=== PATIENT | female | born 1975 | race Caucasian/White ===

== ENCOUNTER 2022-01-06 14:12 | Outpatient (REF) | payer OTHER, SELFPAY ==
[2022-01-06 16:23] LABS: MANUAL DIFF FLAG NO
[2022-01-06 16:25] LABS: Basophils Percent Auto 0.3 % (0-2); Eosinophils Absolute Auto 0.2 X10*3/uL (0.0-0.4); Eosinophils Percent Auto 2.2 % (0-4); Hematocrit 42.2 % (37.0-47.0); Imm Gran Abs Auto 0.03 X10*3/uL (0.00-0.03); Imm Gran Pct Auto 0.3 % (0.0-0.4); Lymphocytes Absolute Auto 2.5 X10*3/uL (1.2-4.9); Lymphocytes Percent Auto 24.3 % (20-40); Mean Corpuscular HGB Conc 33.2 g/dl (31.0-35.0); Mean Corpuscular Hemoglobin 28.4 pg (27.0-33.0); Mean Corpuscular Volume 85.6 fL (80.0-98.0); Mean Platelet Volume 10.9 fL (9.4-12.3); Monocytes Absolute Auto 0.7 X10*3/uL (0.1-1.2); Monocytes Percent Auto 6.8 % (2-11); Neutrophils Absolute Auto 6.8 x10*3/uL (2.0-8.3); Neutrophils Percent Auto 66.1 % (45-73); Platelet Count 257 X10*3/uL (160-400); Red Blood Count 4.93 X10*6/uL (4.20-5.50); Red Cell Distribution Width 12.6 % (11.0-16.0); White Blood Count 10.3 X10*3/uL (4.8-10.8)
== END 2022-01-06 14:13 | disposition home or self-care (01) ==
LOC: HO.HMGCLDS 14:12
PROVIDERS: Visit Provider Physician Assistant Medical
DX: L03.90 Cellulitis, unspecified (principal)
CPT/HCPCS: 36415; 85025

== ENCOUNTER 2023-08-16 14:48 | Outpatient (AMB) | payer OTHER, SELFPAY ==
[2023-08-16 15:08] VITALS: PULSE 78; O2SAT 96; BMI 44.1
--- NOTE | 2023-08-16 15:08 | A.OFFVIS_ITS ---
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 The patient is a 48 year woman who apparently started developing respiratory issues the last for 5 years. She is having issues with hoarseness laryngitis. 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 She has had episodes of asthma that had been frequent. Requiring multiple courses of prednisone antibiotics. She will usually go to an urgent care. The last time she did go to the [facility] ED. That was back in May. I did look at her imaging studies. The patient had a chest x-ray without any acute disease. The patient has never had allergy testing. She does have a cat a dog and a bird. On examination she does have significant wheezing. She had been taking Advair HFA for many years. Although with her vocal cord dysfunction not sure if the inhalers are actually helping her to the fullest degree. She has been also using allergy medication. Will go ahead and request allergy testing at this time. Will start her on budesonide via nebulizer to try to improve her significant wheezing and avoid prednisone. The patient also may have a component of microaspiration specially with a vocal cord paralysis. She does have a hiatal hernia. She did have a barium swallow without any significant reflux although explained to her that she likely does because of her hiatal hernia. We did talk about the importance of sleeping elevated in the reflux di et. She will make some lifestyle changes this time. In addition to that will start her on a promotility agent azithromycin for least a month and see this provides some relief as well. The patient returns 6-8 weeks after her allergy testing. Will hold off on spirometry specially with a vocal cord paralysis. The patient will be following up with ENT soon and she is going to have a Botox injection. [facility] Medical History (Updated 08/18/23 @ 23:16 by Josh Infante MD) Hiatal hernia Paralysis of right vocal cord Asthma Allergy Social History (Updated 08/16/23 @ 15:13 by Chrissie Joshi, RMA) Patient Tobacco Use Status: Former Tobacco user Tobacco use type: Cigarette Years Smoked: 25 Years Review of Systems Const Denies fever(s) Eyes Reports no additional complaints ENT Reports nasal congestion Card Denies chest pain and Reports dyspnea on exertion Resp Reports cough, Reports dyspnea on exertion and Reports wheezing GI Reports heartburn Musc Reports no additional complaints Skin/Breast Denies rash [place]/Lymph Denies lymphadenopathy Aller/Immun Reports wheezing Physical Exam Vital Signs: Last Vital Signs Pulse 78 08/16/23 15:08 Pulse Ox 96 08/16/23 15:08 Oxygen Delivery Method Room Air 08/16/23 15:08 BMI result Body Mass Index 44.1 Const General: comfortable HEENT Head: Yes normocephalic Chest Chest palpation & inspection: normal inspection of the chest Resp Effort & Inspection: normal respiratory effort Auscultation: wheezes Cardio Heart sounds: S1 normal heart sound present and S2 normal heart sound present GI Palpation (GI): Soft to palpation Skin General skin exam: no rashes or lesions noted Extrem General: Yes no clubbing, cyanosis or edema Assessment & Plan Assessment & Plan (1) Asthma: Code(s): J45.909 - Unspecified asthma, uncomplicated Category: Medical Qualifiers: Asthma severity: moderate Asthma persistence: persistent Asthma complication type: uncomplicated Qualified Code(s): J45.40 - Moderate persistent asthma, uncomplicated (2) Allergy: Code(s): T78.40XA - Allergy, unspecified, initial encounter Category: Medical Qualifiers: Encounter type: initial encounter Qualified Code(s): T78.40XA - Allergy, unspecified, initial encounter (3) Paralysis of right vocal cord: Code(s): J38.01 - Paralysis of vocal cords and larynx, unilateral Category: Medical (4) Hiatal hernia: Code(s): K44.9 - Diaphragmatic hernia without obstruction or gangrene Category: Medical Plan continue Advair Add budesondie via neb ELVA as needed Bloodwork/allergy testing nebulizer provided start Azithromycin MWF x 1 month Prednisone if no better May benefit from Biologic therapy Orders: Orders Complete Blood Count Auto Diff 08/16/23 J45.909 - Unspecified asthma, uncomplicated, T78.40XA - Allergy, unspecified, initial encounter Basic Metabolic Panel 08/16/23 J45.909 - Unspecified asthma, uncomplicated, T78.40XA - Allergy, unspecified, initial encounter Hypersensitive Pneumonitis Prf 08/16/23 J45.909 - Unspecified asthma, uncomplicated, R91.8 - Other nonspecific abnormal finding of lung field, T78.40XA - Allergy, unspecified, initial encounter Erythrocyte Sedimentation Rate 08/16/23 J45.909 - Unspecified asthma, uncompl icated, T78.40XA - Allergy, unspecified, initial encounter Sjogren's Antibodies 08/16/23 J45.909 - Unspecified asthma, uncomplicated, T78.40XA - Allergy, unspecified, initial encounter Immunoglobulin E 08/16/23 J45.909 - Unspecified asthma, uncomplicated, T78.40XA - Allergy, unspecified, initial encounter DIANE Reflex Titer and Pattern 08/16/23 J45.909 - Unspecified asthma, uncomplicated, T78.40XA - Allergy, unspecified, initial encounter Resp Allergy Profile Region I 08/16/23 J45.909 - Unspecified asthma, uncomplicated, R91.1 - Solitary pulmonary nodule, T78.40XA - Allergy, unspecified, initial encounter Medications: New budesonide 0.5 mg (2 mL) inhalation QAM 60 mL 11RF 30 days J44.9 - Chronic obstructive pulmonary disease, unspecified azithromycin Take 1 tablet on Saturday/Saturday/Saturday 250 mg PO 3XW 12 tabs 0RF 28 days K21.9 - Gastro-esophageal reflux disease without esophagitis Coding Level of Care Code New Pt Level 4 (24278) Diagnoses Moderate persistent asthma without complication J45.40 Asthma severity: moderate Asthma persistence: persistent Asthma complication type: uncomplicated Allergy, initial encounter T78.40XA Encounter type: initial encounter Paralysis of right vocal cord J38.01 Hiatal hernia K44.9 Time Spent (min) 40
== END 2023-08-16 15:40 | disposition home or self-care (01) ==
PROVIDERS: PCP Internal Medicine; Visit Provider Hospitalist
DX: J45.40 Moderate persistent asthma, uncomplicated (principal); T78.40XA Allergy, unspecified, initial encounter; J38.01 Paralysis of vocal cords and larynx, unilateral; K44.9 Diaphragmatic hernia without obstruction or gangrene
CPT/HCPCS: 99204

== ENCOUNTER 2023-08-16 14:48 | Outpatient (REF) | payer OTHER, SELFPAY ==
[2023-08-16 15:53] LABS: MANUAL DIFF FLAG NO
[2023-08-16 17:55] LABS: Basophils Absolute Auto 0.1 X10*3/uL (0.0-0.2); Basophils Percent Auto 0.4 % (0-2); Eosinophils Absolute Auto 0.5 X10*3/uL (0.0-0.4); Eosinophils Percent Auto 4.7 % (0-4); Hematocrit 41.8 % (37.0-47.0); Hemoglobin 13.4 g/dl (12.0-16.0); Imm Gran Abs Auto 0.04 X10*3/uL (0.00-0.03); Imm Gran Pct Auto 0.3 % (0.0-0.4); Lymphocytes Absolute Auto 3.7 X10*3/uL (1.2-4.9); Lymphocytes Percent Auto 32.6 % (20-40); Mean Corpuscular HGB Conc 32.1 g/dl (31.0-35.0); Mean Corpuscular Hemoglobin 25.9 pg (27.0-33.0); Mean Corpuscular Volume 80.7 fL (80.0-98.0); Monocytes Absolute Auto 0.7 X10*3/uL (0.1-1.2); Neutrophils Absolute Auto 6.4 x10*3/uL (2.0-8.3); Platelet Count 265 X10*3/uL (160-400); Red Blood Count 5.18 X10*6/uL (4.20-5.50); Red Cell Distribution Width 13.4 % (11.0-16.0); White Blood Count 11.5 X10*3/uL (4.8-10.8)
[2023-08-16 18:56] LABS: Erythrocyte Sedimentation Rate 12 MM/HR (0-20)
[2023-08-16 18:57] LABS: Anion Gap 13 (12-20); Blood Urea Nitrogen 17 mg/dL (9-16); Calcium 9.4 mg/dL (8.4-10.2); Carbon Dioxide 27 mmol/L (22-29); Chloride 106 mmol/L (96-108); Estimated Glomerular Filt Rate > 60; Glucose Random 74 mg/dL (60-115); Potassium 3.8 mmol/L (3.3-5.1); Sodium 142 mmol/L (135-145)
[2023-08-20 22:04] LABS: Antibody to SS-A Antigen <1.0 NEG AI (<1.0 NEG); Antibody to SS-B Antigen <1.0 NEG AI (<1.0 NEG)
[2023-08-21 14:34] LABS: Immunoglobulin E 38 kU/L (<OR=114)
[2023-08-24 14:13] LABS: Asperg fumigatus Precip Abs NEGATIVE (NEGATIVE); Micropoly faeni Abs NEGATIVE (NEGATIVE); Pigeon serum Abs NEGATIVE (NEGATIVE); Saccharo pora viridis Abs NEGATIVE (NEGATIVE); Thermo candidus Abs NEGATIVE (NEGATIVE); Thermoa vulgaris #1 NEGATIVE (NEGATIVE)
[2023-08-24 21:14] LABS: Anti Nuclear Antibody Pattern Nuclear, Homogeneous; Anti Nuclear Antibody Screen POSITIVE (NEGATIVE)
== END 2023-08-16 14:49 | disposition home or self-care (01) ==
LOC: HO.LAB 14:48
PROVIDERS: Visit Provider Hospitalist
DX: J45.40 Moderate persistent asthma, uncomplicated (principal); T78.40XA Allergy, unspecified, initial encounter; R91.8 Other nonspecific abnormal finding of lung field; K44.9 Diaphragmatic hernia without obstruction or gangrene; J38.01 Paralysis of vocal cords and larynx, unilateral
CPT/HCPCS: 36415; 80048; 82785; 85025; 85652; 86038; 86039; 86235; 86331; 86606; 86609

== ENCOUNTER 2023-09-26 10:54 | Outpatient (AMB) | payer OTHER, SELFPAY ==
[2023-09-26 10:58] VITALS: PULSE 73; O2SAT 94; BMI 46.1
--- NOTE | 2023-09-26 10:58 | A.OFFVIS_ITS ---
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 She is having issues with hoarseness laryngitis. 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 She has had episodes of asthma that had been frequent. Requiring multiple courses of prednisone antibiotics. She will usually go to an urgent care. The last time she did go to the [facility] ED. That was back in May. I did look at her imaging studies. The patient had a chest x-ray without any acute disease. The patient has never had allergy testing. She does have a cat a dog and a bird. On examination she does have significant wheezing. She had been taking Advair HFA for many years. Although with her vocal cord dysfunction not sure if the inhalers are actually helping her to the fullest degree. She has been also using allergy medication. Will go ahead and request allergy testing at this time. Will start her on budesonide via nebulizer to try to improve her significant wheezing and avoid prednisone. The patient also may have a component of microaspiration specially with a vocal cord paralysis. She does have a hiatal hernia. She did have a barium swallow without any significant reflux although explained to her that she likely does because of her hiatal hernia. We did talk about the importance of sleeping elevated in the reflux diet. She will make some lifestyle changes this time. In addition to that will start her on a promotility agent azithromycin for least a month and see this provides some relief as well. The patient returns 6-8 weeks after her allergy testing. Will hold off on spirometry specially with a vocal cord paralysis. The patient will be following up with ENT soon and she is going to have a Botox injection. 09/26/2023 the patient is here for a pulmonary follow-up visit. The patient is doing a little better. She did start budesonide has continued the Advair. Still having wheezing on a regular basis still requiring her rescue inhaler regularly. She also completed the antibiotics. She is monitoring closely for any reflux disease and following reflux diet. Overall she is doing a little better. We did look at her blood work demonstrating significant eosinophilia. 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 Based on the fact that she is maximized on respiratory therapy and requiring frequent prednisone and still having wheezing requiring her rescue inhaler on a daily basis consistent with severe persistent asthma the patient be a great candidate for interleukin 5 inhibitors. I believe Fasenra be a very good option for her. Will be requested from her insurance. This will minimize her steroid use and therefore decrease her risk of future adverse effects from the steroids and improve her overall health and quality of life. So will go ahead and maximize her respiratory therapy and request biologics at this time. She does have some lower extremity edema as well. The patient does not taking additional salt. She is very careful with that. She does have an elevated blood pressure. She does have snoring and does have an elevated Nageezi score of 10/24. We did discuss considering sleep study. Will discuss it further once her respiratory symptoms are improved. [facility] Medical History (Updated 09/26/23 @ 23:26 by Josh Infante MD) Hiatal hernia Paralysis of right vocal cord Asthma Allergy Social History (Updated 08/16/23 @ 15:13 by BHAKTI Dee) Patient Tobacco Use Status: Former Tobacco user Tobacco use type: Cigarette Years Smoked: 25 Years Review of Systems Const Denies fever(s) Eyes Reports no additional complaints ENT Reports nasal congestion Card Denies chest pain and Reports dyspnea on exertion Resp Reports cough, Reports dyspnea on exertion and Reports wheezing GI Reports heartburn Musc Reports no additional complaints Skin/Breast Denies rash [place]/Lymph Denies lymphadenopathy Aller/Immun Reports wheezing Physical Exam Vital Signs: Last Vital Signs Pulse 73 09/26/23 10:58 Pulse Ox 94 09/26/23 10:58 Oxygen Delivery Method Room Air 09/26/23 10:58 BMI result Body Mass Index 46.1 Const General: comfortable HEENT Head: Yes normocephalic Chest Chest palpation & inspection: normal inspection of the chest Resp Effort & Inspection: normal respiratory effort and prolonged expiratory phase Auscultation: wheezes Cardio Heart sounds: S1 normal heart sound present and S2 normal heart sound present GI Palpation (GI): Soft to palpation Skin General skin exam: no rashes or lesions noted Extrem General: Yes no clubbing, cyanosis or edema Assessment & Plan Assessment & Plan (1) Asthma: Code(s): J45.909 - Unspecified asthma, uncomplicated Category: Medical Qualifiers: Asthma complication type: uncomplicated Asthma persistence: persistent Asthma severity: severe Qualified Code(s): J45.50 - Severe persistent asthma, uncomplicated (2) Allergy: Code(s): T78.40XA - Allergy, unspecified, initial encounter Category: Medical Qualifiers: Encounter type: initial encounter Qualified Code(s): T78.40XA - Allergy, unspecified, initial encounter (3) Paralysis of right vocal cord: Code(s): J38.01 - Paralysis of vocal cords and larynx, unilateral Category: Medical (4) Hiatal hernia: Code(s): K44.9 - Diaphragmatic hernia without obstruction or gangrene Category: Medical Plan stop Advair start Trelegy 200 continue budesonide via neb ELVA as needed Requesting Fasenra biologic therapy to treat her severe eosinophilic asthma nebulizer F/U 4 months Medications: New yjktofrzxmk-bsdtprutm-ranzbffv 200-62.5-25 mcg (Trelegy Ellipta) 1 inh inhalation DAILY 60 ea 12RF 30 days Coding Level of Care Code Est Pt Level 4 (81068) Diagnoses Severe persistent asthma without complication J45.50 Asthma complication type: uncomplicated Asthma persistence: persistent Asthma severity: severe Allergy, initial encounter T78.40XA Encounter type: initial encounter Paralysis of right vocal cord J38.01 Hiatal hernia K44.9 Time Spent (min) 17
== END 2023-09-26 11:18 | disposition home or self-care (01) ==
PROVIDERS: PCP Internal Medicine; Visit Provider Hospitalist
DX: J45.50 Severe persistent asthma, uncomplicated (principal); T78.40XA Allergy, unspecified, initial encounter; J38.01 Paralysis of vocal cords and larynx, unilateral; K44.9 Diaphragmatic hernia without obstruction or gangrene
CPT/HCPCS: 99214

== ENCOUNTER → 2023-09-26 10:54 | Outpatient (BNVA) | payer OTHER, SELFPAY | PROVIDERS: PCP Internal Medicine; Visit Provider Hospitalist | DX: J44.9 Chronic obstructive pulmonary disease, unspecified (principal); T78.40XA Allergy, unspecified, initial encounter; J45.909 Unspecified asthma, uncomplicated; K21.9 Gastro-esophageal reflux disease without esophagitis ==

== ENCOUNTER 2023-12-13 13:58 | Outpatient (AMB) | payer OTHER, SELFPAY ==
[2023-12-13 14:08] VITALS: BP 150/98; PULSE 85; O2SAT 93; BMI 44.3
--- NOTE | 2023-12-13 14:08 | A.OFFVIS_ITS ---
Vital Signs 12/13/23 14:08 Height 5 ft 3 in Weight 250 lb 2 oz BMI 44.3 BP 150/98 H Blood Pressure Location Rt brachial Position Sitting Pulse 85 Pulse Source Pulse Oximeter Pulse Oximetry (%) 93 Oxygen Delivery Method Room Air Intake Visit Reasons: Increase shortness of breath Allergies No Known Allergies Allergy (Verified 12/13/23 14:16) HPI HPI Increase shortness of breath: Details: Diana is pleasant 48 year old female, former minimal smoker with less than 10 pack year history, with underlying asthma, environmental allergies, and vocal cord dysfunction. She is under the care of Dr. Infante and presents today for an acute visit. She was switched from ICS/LABA to Trelegy with suboptimal effect. She uses budesonide nebulizer PRN, combivent PRN, and albuterol MDI with minimal effect. The process for Fasenra has been initiated but has not been approved yet. She reports worsening symptoms over in the last three months however over the last week symptoms have progressively worsened with productive cough with yellow sputum, wheezing, dyspnea with minimal exertion and chest tig htness. She denies fever or chills. [facility] Medical History (Updated 12/13/23 @ 15:08 by Pily Morgan NP) Hiatal hernia Paralysis of right vocal cord Asthma Allergy Social History (Updated 12/13/23 @ 15:41 by Pily Morgan NP) Patient Tobacco Use Status: Former Tobacco user Tobacco use type: Cigarette Years Smoked: 10 years, quit 20+ yrs ago Second Hand Smoke Exposure: Yes Review of Systems Const Denies chills, Denies excessive sweating, Denies fever(s), Denies headache(s) and Denies night sweats Eyes Denies dry eyes, Denies irritation and Denies itchy eyes ENT Reports Normal hearing present, Denies headache(s), Denies nasal congestion, Denies nasal discharge, Denies post nasal drip and Denies sore throat Card Denies chest pain, Denies chest pain at rest, Denies chest pain with activity, Denies claudication, Denies leg edema, Denies orthopnea and Denies paroxysmal nocturnal dyspnea Resp Denies pain on inspiration, Denies pain with cough and Denies stridor Musc Denies myalgias Neuro Reports Normal hearing present and Denies headache(s) Endo Denies excessive sweating [place]/Lymph Denies lymphadenopathy Aller/Immun Denies itchy eyes and Denies seasonal rhinorrhea Physical Exam Vital Signs: Last Vital Signs Pulse 85 12/13/23 14:08 BP 150/98 H 12/13/23 14:08 Pulse Ox 93 12/13/23 14:08 Oxygen Delivery Method Room Air 12/13/23 14:08 BMI result Body Mass Index 44.3 Const General: cooperative, no acute distress, well developed and alert Nutritional Appearance: obese Orientation/consciousness: patient oriented x3 Limitations: no limitations HEENT Head: Yes normal to inspection, Yes normocephalic and Yes atraumatic Ears: hearing grossly normal bilaterally and external ears normal Eyes General: appearance normal, both eyes and all related structures Eyelids: Yes eyelids normal Sclerae: sclerae normal EOM: EOMs intact bilaterally Neck Neck: Yes normal visual inspection and Yes no lymphadenopathy Lymphatic: no lymphadenopathy noted Chest Chest palpation & inspection: normal inspection of the chest Resp Effort & Inspection: able to speak in complete sentences, audible wheezes, Actively coughing, no stridor, not tachypneic, no tripod positioning and no use of accessory muscles Auscultation: crackles, rhonchi and wheezes Cardio Jugular venous distension: no JVD Rate: regular rate Rhythm: regular rhythm Skin Other: warm, dry General skin exam: no rashes or lesions noted Neuro General: patient oriented x3 Cranial nerves: Yes Normal hearing present Cognition (Neuro): normal cognition Gait exam (Neuro): Normal gait present Extrem General: Yes normal to inspection, Yes capillary refill normal, Yes no clubbing, cyanosis or edema and Yes no pedal edema Psych Appearance: grossly normal and well kempt Speech and movement: Normal speech and movement present and Clear speech present Affect: normal affect Attitude: cooperative Thought process: Normal thought process present Thought content: Normal thought content present Insight: Good insight present (Psych) Judgement: Good judgement present (Psych) Office Procedures Nebulizer Treatment Nebulizer Treatment [id number]/MDI RX initial, or Nebulizer Subsequent Treatment Office Meds ipratropium 0.5 mg-albuterol 3 mg (2.5 mg base)/3 mL nebulization soln Performing Provider: Pily Morgan NP [place] Location[place] [facility] Administered by: Pily Morgan NP on 12/13/23 14:48 Dose Route Admin Location Dispensed Lot Number Expiration Date [employer]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 Will send for CXR. DuoNeb given in office with minimal improvement. Will treat bronchitic symptoms with a zpak and prednisone. She is aware if symptoms worsen to seek emergent care and if they do not improve to call office. Advised to call to check on status of Fasenra next week. All questions were answered and patient is in agreement of plan. Will follow up with regularly scheduled appointment with Dr. Infante or sooner if needed. Orders: Orders AMB Nebulizer Treatment Today J45.50 - Severe persistent asthma, uncomplicated XR chest 2V Today R05.9 - Cough, unspecified Medications: New prednisone 40 mg (2 x 20 mg) PO DAILY 10 tabs 0RF azithromycin For 250 mg dose pack: take 500 mg today (day 1), then 250 mg for 4 days (days 2-5) PO 6 tabs 0RF Coding Level of Care Code Est Pt Level 4 (99839) Diagnoses Cough R05.9 Severe persistent asthma without complication J45.50 Asthma severity: severe Asthma persistence: persistent Asthma complication type: uncomplicated Paralysis of right vocal cord J38.01 CPT Codes Nebulizer Treatment - Nebulizer Treatment, initial or subsequent: 52151- Nebulizer/MDI RX initial, or Nebulizer Subsequent Treatment ([id number])
== END 2023-12-13 15:34 | disposition home or self-care (01) ==
PROVIDERS: PCP Internal Medicine; Visit Provider Nurse Practitioner Family
DX: R05.9 Cough, unspecified (principal); J45.50 Severe persistent asthma, uncomplicated; J38.01 Paralysis of vocal cords and larynx, unilateral
CPT/HCPCS: 99214

== ENCOUNTER → 2023-12-13 13:58 | Outpatient (BNVA) | payer OTHER, SELFPAY | PROVIDERS: PCP Internal Medicine; Visit Provider Nurse Practitioner Family ==

== ENCOUNTER 2023-12-13 15:27 | Outpatient (REF) | payer OTHER, SELFPAY ==
--- NOTE | ~2023-12-13 | XR_ITS ---
EXAMINATION: XR CHEST CLINICAL INFORMATION: Cough. COMPARISON: None available. TECHNIQUE: 2 views of the chest were obtained. Fluoroscopy was utilized. FINDINGS: Normal appearance of the cardiomediastinal silhouette. No focal consolidation, pleural effusion or pneumothorax. No acute osseous findings. XR/XR chest 2V IMPRESSION: No acute cardiopulmonary findings. Electronically signed by: Fina Roman MD 12/13/2023 03:55 PM EDT
== END 2023-12-13 15:28 | disposition home or self-care (01) ==
LOC: HO.HMGCX 15:27
PROVIDERS: Visit Provider Nurse Practitioner Family
DX: R05.9 Cough, unspecified (principal); J45.50 Severe persistent asthma, uncomplicated; J38.01 Paralysis of vocal cords and larynx, unilateral
CPT/HCPCS: 71046; 94640

== ENCOUNTER 2024-01-17 12:59 | Outpatient (AMB) | payer OTHER, SELFPAY ==
--- NOTE | 2024-01-17 13:13 | A.OFFVIS_ITS ---
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 She is having issues with hoarseness laryngitis. 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 She has had episodes of asthma that had been frequent. Requiring multiple courses of prednisone antibiotics. She will usually go to an urgent care. The last time she did go to the [facility] ED. That was back in May. I did look at her imaging studies. The patient had a chest x-ray without any acute disease. The patient has never had allergy testing. She does have a cat a dog and a bird. On examination she does have significant wheezing. She had been taking Advair HFA for many years. Although with her vocal cord dysfunction not sure if the inhalers are actually helping her to the fullest degree. She has been also using allergy medication. Will go ahead and request allergy testing at this time. Will start her on budesonide via nebulizer to try to improve her significant wheezing and avoid prednisone. The patient also may have a component of microaspiration specially with a vocal cord paralysis. She does have a hiatal hernia. She did have a barium swallow without any significant reflux although explained to her that she likely does b ecause of her hiatal hernia. We did talk about the importance of sleeping elevated in the reflux diet. She will make some lifestyle changes this time. In addition to that will start her on a promotility agent azithromycin for least a month and see this provides some relief as well. The patient returns 6-8 weeks after her allergy testing. Will hold off on spirometry specially with a vocal cord paralysis. The patient will be following up with ENT soon and she is going to have a Botox injection. 09/26/2023 the patient is here for a pulmonary follow-up visit. The patient is doing a little better. She did start budesonide has continued the Advair. Still having wheezing on a regular basis still requiring her rescue inhaler regularly. She also completed the antibiotics. She is monitoring closely for any reflux disease and following reflux diet. Overall she is doing a little better. We did look at her blood work demonstrating significant eosinophilia. 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 Based on the fact that she is maximized on respiratory therapy and requiring frequent prednisone and still having wheezing requiring her rescue inhaler on a daily basis consistent with severe persistent asthma the patient be a great candidate for interleukin 5 inhibitors. I believe Fasenra be a very good option for her. Will be requested from her insurance. This will minimize her steroid use and therefore decrease her risk of future adverse effects from the steroids and improve her overall health and quality of life. So will go ahead and maximize her respiratory therapy and request biologics at this time. She does have some lower extremity edema as well. The patient does not taking additional salt. She is very careful with that. She does have an elevated blood pressure. She does have snoring and does have an elevated [place] score of 10/24. We did discuss considering sleep study. Will discuss it further once her respiratory symptoms are improved. 01/17/2024 the patient is here for a pulmonary follow-up visit. The patient has been very sick with her asthma. Has had multiple exacerbations already requiring prednisone. She does have severe persistent asthma with frequent exacerbations. She does have an elevated eosinophil count and we did request biologic therapy, Fasenra. However was denied by insurance for an unclear reason. Today she is having significant wheezing on examination. She will need additional steroids and receive a Solu-Medrol IM x1. For additional information for insurance purposes we did perform a spirometry at the bedside demonstrating severe obstruction consistent with her severe persistent asthma which is uncontrolled. Patient will need additional prednisone will continue her ma ximize respiratory therapy as she is so doing with good compliance. Will go ahead and resubmit to the insurance company the need for biologic therapy. I do believe Fasenra be a very good option for her. Although Nucala would also be a good alternative. Will work with insurance company in order to get the patient's medications available in order for her to improve her overall symptoms. [facility] Medical History (Updated 12/13/23 @ 15:08 by Pily Morgan NP) Hiatal hernia Paralysis of right vocal cord Asthma Allergy Social History (Updated 12/13/23 @ 15:41 by Pily Morgan NP) Patient Tobacco Use Status: Former Tobacco user Tobacco use type: Cigarette Years Smoked: 10 years, quit 20+ yrs ago Second Hand Smoke Exposure: Yes Review of Systems Const Denies fever(s) Eyes Reports no additional complaints ENT Reports nasal congestion Card Denies chest pain and Reports dyspnea on exertion Resp Reports cough, Reports dyspnea on exertion and Reports wheezing GI Reports heartburn Musc Reports no additional complaints Skin/Breast Denies rash [place]/Lymph Denies lymphadenopathy Aller/Immun Reports wheezing Physical Exam Vital Signs: Last Vital Signs Pulse 82 01/17/24 13:19 BP 118/70 01/17/24 13:19 Pulse Ox 95 01/17/24 13:19 Oxygen Delivery Method Room Air 01/17/24 13:19 BMI result Body Mass Index 44.1 Const General: comfortable HEENT Head: Yes normocephalic Chest Chest palpation & inspection: normal inspection of the chest Resp Effort & Inspection: normal respiratory effort and prolonged expiratory phase Auscultation: wheezes Cardio Heart sounds: S1 normal heart sound present and S2 normal heart sound present GI Palpation (GI): Soft to palpation Skin General skin exam: no rashes or lesions noted Extrem General: Yes no clubbing, cyanosis or edema Office Procedures Spirometry Testing Spirometry Comments: Spriometry done in the office, Dr Infante has the results results scanned to her chart. 11395- Spirometry Office Meds methylprednisolone sod suc(PF) 125 mg/2 mL solution for injection Performing Provider: Josh Infante MD Performing Location: [facility] Administered by: Erin Pelayo LPN on 01/17/24 14:01 Dose Route Admin Location Dispensed Lot Number Expiration Date [facility] [employer] Techn[employer] Mechan[employer] 125 mg IM R buttock 2 ea [id number] 12/20/25 7956-2917-90 [place] [employer] Comments: total dose given 125mg/2ml Assessment & Plan Assessment & Plan (1) Asthma: Code(s): J45.909 - Unspecified asthma, uncomplicated Category: Medical Qualifiers: Asthma complication type: uncomplicated Asthma persistence: persistent Asthma severity: severe Qualified Code(s): J45.50 - Severe persistent asthma, uncomplicated (2) Allergy: Code(s): T78.40XA - Allergy, unspecified, initial encounter Category: Medical Qualifiers: Encounter type: initial encounter Qualified Code(s): T78.40XA - Allergy, unspecified, initial encounter (3) Paralysis of right vocal cord: Code(s): J38.01 - Paralysis of vocal cords and larynx, unilateral Category: Medical (4) Hiatal hernia: Code(s): K44.9 - Diaphragmatic hernia without obstruction or gangrene Category: Medical Plan continue Trelegy 200 continue budesonide via neb ELVA as needed Solumedrol IM x 1 now start prednisone taper start Doxycycline Requesting Fasenra biologic therapy to treat her severe eosinophilic asthma nebulizer F/U 3-4 weeks Orders: Orders AMB Spirometry Testing 01/17/24 J45.50 - Severe persistent asthma, uncomplicated AMB Methylprednisolone Sod Succ Injection 01/17/24 J45.50 - Severe persistent asthma, uncomplicated Medications: New prednisone PO daily; Take 6 tabs daily x 3 days, then 5 tabs x 3 days, then 4 tabs x 3 days, then 3 tabs x 3 days, then 2 tabs daily x 3 days, then 1 tab x 3 days to complete. 63 tabs 0RF 18 days doxycycline monohydrate 100 mg PO BID 28 tabs 0RF 14 days Coding Level of Care Code Est Pt Level 4 (06617) Diagnoses Severe persistent asthma without complication J45.50 Asthma complication type: uncomplicated Asthma persistence: persistent Asthma severity: severe Allergy, initial encounter T78.40XA Encounter type: initial encounter Paralysis of right vocal cord J38.01 Hiatal hernia K44.9 CPT Codes Spirometry - CPT: 97382- Spirometry ([id number]) Time Spent (min) 17
[2024-01-17 13:19] VITALS: BP 118/70; PULSE 82; O2SAT 95; BMI 44.1
== END 2024-01-17 13:59 | disposition home or self-care (01) ==
PROVIDERS: PCP Nurse Practitioner; Visit Provider Hospitalist
DX: J45.50 Severe persistent asthma, uncomplicated (principal); T78.40XA Allergy, unspecified, initial encounter; J38.01 Paralysis of vocal cords and larynx, unilateral; K44.9 Diaphragmatic hernia without obstruction or gangrene
CPT/HCPCS: 94010; 99214

== ENCOUNTER → 2024-01-17 12:59 | Outpatient (BNVA) | payer OTHER, SELFPAY | PROVIDERS: PCP Internal Medicine; Visit Provider Hospitalist | DX: J45.50 Severe persistent asthma, uncomplicated (principal); T78.40XA Allergy, unspecified, initial encounter; J38.01 Paralysis of vocal cords and larynx, unilateral; K44.9 Diaphragmatic hernia without obstruction or gangrene | CPT/HCPCS: 94010; 96372; J2919 ==

== ENCOUNTER 2024-02-06 10:39 | Outpatient (AMB) | payer OTHER, SELFPAY ==
--- NOTE | 2024-02-06 10:46 | A.OFFVIS_ITS ---
Vital Signs 02/06/24 10:47 Height 5 ft 3 in Weight 260 lb BMI 46.1 BP 128/70 Blood Pressure Location Lt brachial Position Sitting Pulse 77 Pulse Source Pulse Oximeter Pulse Oximetry (%) 96 Oxygen Delivery Method Room Air Intake Visit Reasons: Asthma Managing Consultant Required: No Allergies No Known Allergies Allergy (Verified 02/06/24 10:49) HPI Comments Details: The patient is a 48 year woman who apparently started developing respiratory issues the last for 5 years. She is having issues with hoarseness laryngitis. 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 She has had episodes of asthma that had been frequent. Requiring multiple courses of prednisone antibiotics. She will usually go to an urgent care. The last time she did go to the [facility] ED. That was back in May. I did look at her imaging studies. The patient had a chest x-ray without any acute disease. The patient has never had allergy testing. She does have a cat a dog and a bird. On examination she does have significant wheezing. She had been taking Advair HFA for many years. Although with her vocal cord dysfunction not sure if the inhalers are actually helping her to the fullest degree. She has been also using allergy medication. Will go ahead and request allergy testing at this time. Will start her on budesonide via nebulizer to try to improve her significant wheezing and avoid prednisone. The patient also may have a component of microaspiration specially with a vocal cord paralysis. She does have a hiatal hernia. She did have a barium swallow without any significant reflux although explained to her that she likely does because of her hiatal hernia. We did talk about the importance of sleeping elevated in the reflux diet. She will make some lifestyle changes this time. In addition to that will start her on a promotility agent azithromycin for least a month and see this provides some relief as well. The patient returns 6-8 weeks after her allergy testing. Will hold off on spirometry specially with a vocal cord paralysis. The patient will be following up with ENT soon and she is going to have a Botox injection. 09/26/2023 the patient is here for a pulmonary follow-up visit. The patient is doing a little better. She did start budesonide has continued the Advair. Still having wheezing on a regular basis still requiring her rescue inhaler regularly. She also completed the antibiotics. She is monitoring closely for any reflux disease and following reflux diet. Overall she is doing a little better. We did look at her blood work demonstrating significant eosinophilia. 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 Based on the fact that she is maximized on respiratory therapy and requiring frequent prednisone and still having wheezing requiring her rescue inhaler on a daily basis consistent with severe persistent asthma the patient be a great candidate for interleukin 5 inhibitors. I believe Fasenra be a very good option for her. Will be requested from her insurance. This will minimize her steroid use and therefore decrease her risk of future adverse effects from the steroids and improve her overall health and quality of life. So will go ahead and maximize her respiratory therapy and request biologics at this time. She does have some lower extremity edema as well. The patient does not taking additional salt. She is very careful with that. She does have an elevated blood pressure. She does have snoring and does have an elevated [place] score of 10/24. We did discuss considering sleep study. Will discuss it further once her respiratory symptoms are improved. 01/17/2024 the patient is here for a pulmonary follow-up visit. The patient has been very sick with her asthma. Has had multiple exacerbations already requiring prednisone. She does have severe persistent asthma with frequent exacerbations. She does have an elevated eosinophil count and we did request biologic therapy, Fasenra. However was denied by insurance for an unclear reason. Today she is having significant wheezing on examination. She will need additional steroids and receive a Solu-Medrol IM x1. For additional information for insurance purposes we did perform a spirometry at the bedside demonstrating severe obstruction consistent with her severe persistent asthma which is uncontrolled. Patient will need additional prednisone will continue her maximize respiratory therapy as she is so doing with good compliance. Will go ahead and resubmit to the insurance company the need for biologic therapy. I do believe Fasenra be a very good option for her. Although Nucala would also be a good alternative. Will work with insurance company in order to get the patient's medications available in order for her to improve her overall symptoms. 02/06/2024 the patient is here for a pulmonary follow-up visit. She continues have significant chronic bronchitis. Significant obstructive airway disease. She continues on the Trelegy in addition to budesonide nebs. She is having hoarseness. She has an ENT evaluation. I bet is likely related to her respiratory medications and vocal cord paralysis. The patient is also requiring frequent doses of prednisone for tapers. Will go ahead and prescribe her Daliresp with the help of decreasing her exacerbations and prednisone needs. The patient also benefit from send biologic therapy. Fasenra will be a very g ood option for her since her eosinophils are elevated. She has yet to hear back from her insurance company hopefully we can get approval and reasonable co-pay for her for to start her biologic shots. Imaging study she had an x-ray back in 12/10/2023 which I personally reviewed demonstrating no acute disease. [facility] Medical History (Updated 02/06/24 @ 11:15 by Josh Infante MD) Lower extremity edema Asthma-COPD overlap syndrome Hiatal hernia Paralysis of right vocal cord Asthma Allergy Social History (Updated 12/13/23 @ 15:41 by Pily Morgan NP) Patient Tobacco Use Status: Former Tobacco user Tobacco use type: Cigarette Years Smoked: 10 years, quit 20+ yrs ago Second Hand Smoke Exposure: Yes Review of Systems Const Denies fever(s) Eyes Reports no additional complaints ENT Reports nasal congestion Card Denies chest pain and Reports dyspnea on exertion Resp Reports cough, Reports dyspnea on exertion and Reports wheezing GI Reports heartburn Musc Reports no additional complaints Skin/Breast Denies rash [place]/Lymph Denies lymphadenopathy Aller/Immun Reports wheezing Physical Exam Vital Signs: Last Vital Signs Pulse 77 02/06/24 10:47 BP 128/70 02/06/24 10:47 Pulse Ox 96 02/06/24 10:47 Oxygen Delivery Method Room Air 02/06/24 10:47 BMI result Body Mass Index 46.1 Const General: comfortable HEENT Head: Yes normocephalic Chest Chest palpation & inspection: normal inspection of the chest Resp Effort & Inspection: normal respiratory effort and prolonged expiratory phase Auscultation: no wheezes and diminished lung sounds Cardio Heart sounds: S1 normal heart sound present and S2 normal heart sound present GI Palpation (GI): Soft to palpation Skin General skin exam: no rashes or lesions noted Extrem General: No cyanosis and Yes edema Assessment & Plan Assessment & Plan (1) Asthma: Code(s): J45.909 - Unspecified asthma, uncomplicated Category: Medical Qualifiers: Asthma complication type: uncomplicated Asthma persistence: persistent Asthma severity: severe Qualified Code(s): J45.50 - Severe persistent asthma, uncomplicated (2) Allergy: Code(s): T78.40XA - Allergy, unspecified, initial encounter Category: Medical Qualifiers: Encounter type: initial encounter Qualified Code(s): T78.40XA - Allergy, unspecified, initial encounter (3) Paralysis of right vocal cord: Code(s): J38.01 - Paralysis of vocal cords and larynx, unilateral Category: Medical (4) Hiatal hernia: Code(s): K44.9 - Diaphragmatic hernia without obstruction or gangrene Category: Medical (5) Lower extremity edema: Code(s): R60.0 - Localized edema Category: Medical Plan continue Trelegy 200 continue budesonide via neb ELVA as needed Requesting Fasenra biologic therapy to treat her severe eosinophilic asthma start Daliresp (Roflumilast) nebulizer Low Na diet F/U 3-4 months Medications: New roflumilast (Daliresp) 500 mcg PO DAILY 30 tabs 6RF 30 days J44.89 - Other specified chronic obstructive pulmonary disease Refilled [id number] 200-62.5-25 mcg (Trelegy Ellipta) 1 inh inhalation DAILY 3 ea 3RF 90 days Coding Level of Care Code Est Pt Level 4 (82806) Diagnoses Severe persistent asthma without complication J45.50 Asthma complication type: uncomplicated Asthma persistence: persistent Asthma severity: severe Allergy, initial encounter T78.40XA Encounter type: initial encounter Paralysis of right vocal cord J38.01 Hiatal hernia K44.9 Lower extremity edema R60.0 Time Spent (min) 16
[2024-02-06 10:47] VITALS: BP 128/70; PULSE 77; O2SAT 96; BMI 46.1
== END 2024-02-06 11:07 | disposition home or self-care (01) ==
PROVIDERS: PCP Nurse Practitioner; Visit Provider Hospitalist
DX: J45.50 Severe persistent asthma, uncomplicated (principal); T78.40XA Allergy, unspecified, initial encounter; J38.01 Paralysis of vocal cords and larynx, unilateral; K44.9 Diaphragmatic hernia without obstruction or gangrene; R60.0 Localized edema
CPT/HCPCS: 99214

== ENCOUNTER → 2024-02-06 10:39 | Outpatient (BNVA) | payer OTHER, SELFPAY | PROVIDERS: PCP Nurse Practitioner; Visit Provider Hospitalist | DX: J44.9 Chronic obstructive pulmonary disease, unspecified (principal); T78.40XA Allergy, unspecified, initial encounter; J45.909 Unspecified asthma, uncomplicated; K21.9 Gastro-esophageal reflux disease without esophagitis ==

== ENCOUNTER 2024-04-20 13:50 | Outpatient (AMB) | payer OTHER, SELFPAY ==
[2024-04-20 14:00] VITALS: BP 140/82; PULSE 91; O2SAT 92; BMI 45.5
--- NOTE | 2024-04-20 14:00 | A.OFFVIS_ITS ---
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 She is having issues with hoarseness laryngitis. 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 She has had episodes of asthma that had been frequent. Requiring multiple courses of prednisone antibiotics. She will usually go to an urgent care. The last time she did go to the [facility] ED. That was back in May. I did look at her imaging studies. The patient had a chest x-ray without any acute disease. The patient has never had allergy testing. She does have a cat a dog and a bird. On examination she does have significant wheezing. She had been taking Advair HFA for many years. Although with her vocal cord dysfunction not sure if the inhalers are actually helping her to the fullest degree. She has been also using allergy medication. Will go ahead and request allergy testing at this time. Will start her on budesonide via nebulizer to try to improve her significant wheezing and avoid prednisone. The patient also may have a component of microaspiration specially with a vocal cord paralysis. She does have a hiatal hernia. She did have a barium swallow without any significant reflux although explained to her that she likely does because of her hiatal hernia. We did talk about the importance of sleeping elevated in the reflux diet. She will make some lifestyle changes this time. In addition to that will start her on a promotility agent azithromycin for least a month and see this provides some relief as well. The patient returns 6-8 weeks after her allergy testing. Will hold off on spirometry specially with a vocal cord paralysis. The patient will be following up with ENT soon and she is going to have a Botox injection. 09/26/2023 the patient is here for a pulmonary follow-up visit. The patient is doing a little better. She did start budesonide has continued the Advair. Still having wheezing on a regular basis still requiring her rescue inhaler regularly. She also completed the antibiotics. She is monitoring closely for any reflux disease and following reflux diet. Overall she is doing a little better. We did look at her blood work demonstrating significant eosinophilia. 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 Based on the fact that she is maximized on respiratory therapy and requiring frequent prednisone and still having wheezing requiring her rescue inhaler on a daily basis consistent with severe persistent asthma the patient be a great candidate for interleukin 5 inhibitors. I believe Fasenra be a very good option for her. Will be requested from her insurance. This will minimize her steroid use and therefore decrease her risk of future adverse effects from the steroids and improve her overall health and quality of life. So will go ahead and maximize her respiratory therapy and request biologics at this time. She does have some lower extremity edema as well. The patient does not taking additional salt. She is very careful with that. She does have an elevated blood pressure. She does have snoring and does have an elevated Gary score of 10/24. We did discuss considering sleep study. Will discuss it further once her respiratory symptoms are improved. 01/17/2024 the patient is here for a pulmonary follow-up visit. The patient has been very sick with her asthma. Has had multiple exacerbations already requiring prednisone. She does have severe persistent asthma with frequent exacerbations. She does have an elevated eosinophil count and we did request biologic therapy, Fasenra. However was denied by insurance for an unclear reason. Today she is having significant wheezing on examination. She will need additional steroids and receive a Solu-Medrol IM x1. For additional information for insurance purposes we did perform a spirometry at the bedside demonstrating severe obstruction consistent with her severe persistent asthma which is uncontrolled. Patient will need additional prednisone will continue her maximize respiratory therapy as she is so doing with good compliance. Will go ahead and resubmit to the insurance company the need for biologic therapy. I do believe Fasenra be a very good option for her. Although Nucala would also be a good alternative. Will work with insurance company in order to get the patient's medications available in order for her to improve her overall symptoms. 02/06/2024 the patient is here for a pulmonary follow-up visit. She continues have significant chronic bronchitis. Significant obstructive airway disease. She continues on the Trelegy in addition to budesonide nebs. She is having hoarseness. She has an ENT evaluation. I bet is likely related to her respiratory medications and vocal cord paralysis. The patient is also requiring frequent doses of prednisone for tapers. Will go ahead and prescribe her Daliresp with the help of decreasing her exacerbations and prednisone needs. The patient also benefit from send biologic therapy. Fasenra will be a very good option for her since her eosinophils are elevated. She has yet to hear back from her insurance company hopefully we can get approval and reasonable co- pay for her for to start her biologic shots. Imaging study she had an x-ray back in 12/10/2023 which I personally reviewed demonstrating no acute disease. 04/20/2024 the patient is here for pulmonary sick visit. She is having hard time with the breathing. She did finish a course of prednisone helpful little bit but then when she weans off she starts having hard time with the breathing. She has severe persistent asthma. The patient was tried to be placed on Fasenra but is extremely expensive for her. Therefore she continues on the Trelegy in addition to the budesonide nebs. She does not like to go on prednisone that it does help her breathing some. The patient also has chronic bronchitis and COPD from the ongoing symptoms. The patient was prescribed Daliresp but it was again denied by her insurance. Will going to submitted again specially since she has significant chronic bronchitis and significant needs for prednisone. The patient has significant wheezing today she also has some chest congestion. Will go ahead and start her another course of prednisone in addition to azithromycin. The hope is to be able to start her on biologic therapy I do believe the Dupixent will be a very good option for her. In the meantime will going to have her start the Daliresp and azithromycin. The patient will return 2 months. If she is not better by then will consider additional imaging studies and consider bronchoscopy. [facility] Medical History (Updated 04/20/24 @ 19:38 by Josh Infante MD) COPD (chronic obstructive pulmonary disease) Lower extremity edema Asthma-COPD overlap syndrome Hiatal hernia Paralysis of right vocal cord Asthma Allergy Social History Patient Tobacco Use Status: Former Tobacco user Tobacco use type: Cigarette Years Smoked: 10 years, quit 20+ yrs ago Second Hand Smoke Exposure: Yes Review of Systems Const Denies fever(s) Eyes Reports no additional complaints ENT Reports nasal congestion Card Denies chest pain and Reports dyspnea on exertion Resp Reports cough, Reports dyspnea on exertion and Reports wheezing GI Reports heartburn Musc Reports no additional complaints Skin/Breast Denies rash [place]/Lymph Denies lymphadenopathy Aller/Immun Reports wheezing Physical Exam Vital Signs: Last Vital Signs Pulse 91 04/20/24 14:00 BP 140/82 H 04/20/24 14:00 Pulse Ox 92 04/20/24 14:00 Oxygen Delivery Method Room Air 04/20/24 14:00 BMI result Body Mass Index 45.5 Const General: comfortable HEENT Head: Yes normocephalic Chest Chest palpation & inspection: normal inspection of the chest Resp Effort & Inspection: normal respiratory effort and prolonged expiratory phase Auscultation: wheezes and diminished lung sounds Cardio Heart sounds: S1 normal heart sound present and S2 normal heart sound present GI Palpation (GI): Soft to palpation Skin General skin exam: no rashes or lesions noted Extrem General: No cyanosis and Yes edema Office Meds methylprednisolone sod suc(PF) 125 mg/2 mL solution for injection Performing Provider: Josh Infante MD Performing Location: [facility] [place] Pulmonology Services Administered by: Erin Pelayo LPN on 04/20/24 14:36 Dose Route Admin Location Dispensed Lot Number Expiration Date NDC Administration Assistant 125 mg IM R buttock 2 ea [id number] 04/21/26 5489-1913-71 [employer] Assessment & Plan Assessment & Plan (1) Asthma: Code(s): J45.909 - Unspecified asthma, uncomplicated Category: Medical Qualifiers: Asthma complication type: with acute exacerbation Asthma persistence: persistent Asthma severity: severe Qualified Code(s): J45.51 - Severe persistent asthma with (acute) exacerbation (2) Allergy: Code(s): T78.40XA - Allergy, unspecified, initial encounter Category: Medical Qualifiers: Encounter type: initial encounter Qualified Code(s): T78.40XA - Allergy, unspecified, initial encounter (3) Paralysis of right vocal cord: Code(s): J38.01 - Paralysis of vocal cords and larynx, unilateral Category: Medical (4) Hiatal hernia: Code(s): K44.9 - Diaphragmatic hernia without obstruction or gangrene Category: Medical (5) Lower extremity edema: Code(s): R60.0 - Localized edema Category: Medical (6) COPD (chronic obstructive pulmonary disease): Code(s): J44.9 - Chronic obstructive pulmonary disease, unspecified Category: Medical Qualifiers: COPD type: unspecified COPD Qualified Code(s): J44.9 - Chronic obstructive pulmonary disease, unspecified Plan continue Trelegy 200 continue budesonide via neb ELVA as needed Requesting Dupixent biologic therapy to treat her severe eosinophilic asthma start Daliresp (Roflumilast) solumedrol IM today, then start Prednisone with slow taper nebulizer Low Na diet F/U 3-4 months Orders: Orders AMB Methylprednisolone Sod Succ Injection Today J45.50 - Severe persistent asthma, uncomplicated Medications: New prednisone 20 mg (2 x 10 mg) PO DAILY 60 tabs 3RF 30 days roflumilast (Daliresp) 500 mcg PO DAILY 30 tabs 11RF 30 days J44.9 - Chronic obstructive pulmonary disease, unspecified azithromycin Take 1 tablet on Saturday/Saturday/Saturday 250 mg PO 3XW 12 tabs 6RF 28 days K21.9 - Gastro-esophageal reflux disease without esophagitis Coding Level of Care Code Est Pt Level 4 (12723) Diagnoses Severe persistent asthma with acute exacerbation J45.51 Asthma complication type: with acute exacerbation Asthma persistence: persistent Asthma severity: severe Allergy, initial encounter T78.40XA Encounter type: initial encounter Paralysis of right vocal cord J38.01 Hiatal hernia K44.9 Lower extremity edema R60.0 Chronic obstructive pulmonary disease, unspecified COPD type J44.9 COPD type: unspecified COPD Time Spent (min) 17
== END 2024-04-20 14:29 | disposition home or self-care (01) ==
PROVIDERS: PCP Nurse Practitioner; Visit Provider Hospitalist
DX: J45.51 Severe persistent asthma with (acute) exacerbation (principal); T78.40XA Allergy, unspecified, initial encounter; J38.01 Paralysis of vocal cords and larynx, unilateral; K44.9 Diaphragmatic hernia without obstruction or gangrene; R60.0 Localized edema; J44.9 Chronic obstructive pulmonary disease, unspecified; J45.50 Severe persistent asthma, uncomplicated
CPT/HCPCS: 99214

== ENCOUNTER → 2024-04-20 13:50 | Outpatient (BNVA) | payer OTHER, SELFPAY | PROVIDERS: PCP Nurse Practitioner; Visit Provider Hospitalist | DX: J45.50 Severe persistent asthma, uncomplicated (principal); J82.83 Eosinophilic asthma; J38.01 Paralysis of vocal cords and larynx, unilateral; T78.40XA Allergy, unspecified, initial encounter; K44.9 Diaphragmatic hernia without obstruction or gangrene; R60.0 Localized edema; J44.9 Chronic obstructive pulmonary disease, unspecified | CPT/HCPCS: 96372; J2919 ==

== ENCOUNTER 2024-06-11 13:39 | Outpatient (REF) | payer OTHER, SELFPAY ==
[2024-06-11 14:41] LABS: MANUAL DIFF FLAG NO
[2024-06-11 15:28] LABS: Basophils Percent Auto 0.3 % (0-2); Eosinophils Absolute Auto 0.3 X10*3/uL (0.0-0.4); Eosinophils Percent Auto 2.2 % (0-4); Hematocrit 38.7 % (37.0-47.0); Imm Gran Abs Auto 0.08 X10*3/uL (0.00-0.03); Imm Gran Pct Auto 0.6 % (0.0-0.4); Lymphocytes Absolute Auto 3.8 X10*3/uL (1.2-4.9); Lymphocytes Percent Auto 28.7 % (20-40); Mean Corpuscular HGB Conc 33.6 g/dl (31.0-35.0); Mean Corpuscular Hemoglobin 26.5 pg (27.0-33.0); Mean Corpuscular Volume 78.8 fL (80.0-98.0); Mean Platelet Volume 10.1 fL (9.4-12.3); Monocytes Percent Auto 7.4 % (2-11); Neutrophils Percent Auto 60.8 % (45-73); Platelet Count 224 X10*3/uL (160-400); Red Blood Count 4.91 X10*6/uL (4.20-5.50); Red Cell Distribution Width 13.3 % (11.0-16.0); White Blood Count 13.1 X10*3/uL (4.8-10.8)
--- OUTSIDE RECORDS SUMMARY | 2024-06-11 15:34 | XMS_ITS | Clinical Summary ---
Author Organization [facility] Address [address] [place] [address] Care Team Providers Care Accounts Executive Name Role Phone Mayra Moctezuma MD Primary Care Provider [phone] Allergies No known active allergies Medications Medication Sig Dispensed Refills Start Date End Date Status sertraline (ZOLOFT) 100 MG tablet 0 06/17/2018 Active Hawley-3 Fatty Acids (FISH OIL) 875 MG CAPS [...] age to complete this topic Care Teams Accounts Executive Relationship Specialty Start Date End Date Mayra Moctezuma MD PCP - General Internal Medicine 07/25/18
--- OUTSIDE RECORDS SUMMARY | 2024-06-11 15:35 | XMS_ITS | Data Portability ---
Author Organization [place] [facility] Address [address] [place] [address] Care Team Providers Care Vice President Of Business Development Name Role Phone ELIAS BRASHER Primary Care Provider Assessment Encounter Date Assessment Date Assessment LastModified by Organization Details LastModified Time 08/06/2022 08/06/2022 47-year-old lita aguilar who is 3-month status post left-sided total knee arthroplasty and 3 weeks status post right-sided total hip arthroplasty is encountering no problems and is making excellent progress. She will get started on some physical therapy for the hip at the time of her soonest convenience. She will be scheduled for a follow-up visit in this office in 1 month sooner if there are any problems. Not available 08/06/2022 13:41:24 09/03/2022 09/03/2022 47-year-old lita aguilar is doing excellent 7 weeks status post right-sided total hip arthroplasty. Recommendations are for continuation and completion of her course of physical therapy. Recommended follow-up with exam and x-ray in 2 months. Follow-up sooner with any problems. Not available 09/03/2022 10:59:29 11/09/2022 11/09/2022 HPI : ? Patient is here for 3 month(s) follow-up for a RIGHT total hip replacement.? she is recovering very well. She is walking without assistive device. She reports near 0 pain. She is extremely happy with her progress. Overall, patient reports good pain relief in the hip and satisfactory latter-day of function in terms of activities of daily living. Physical Exam : Patient is well nourished, well-developed, in no acute distress, with appropriate mood and affect. The patient is oriented to time, place, and person. Respirations are even and unlabored. There is no inguinal adenopathy. Examination of the contralateral hip shows normal range of motion, strength, no tenderness, and intact skin. The operative limb is well-perfused, with well healed skin incision. The patient demonstrates good hip motion, stability, and strength. There is no pain with ROM Muscle strength is normal. Pedal pulses are palpable. Assessment/Plan : This patient is functioning well after RIGHT total hip arthroplasty. Continue to work on hip conditioning exercises. Abhv-kzj-zespnwf medications as needed. Ultimate failure may occur due to mechanical wear, loosening or breakage. Follow-up is recommended to assess for the possibility of failure. Plan for follow-up at 1 year from surgery with repeat x-rays of her right hip and left knee at that time. Not available 11/09/2022 13:55:54 06/13/2023 06/13/2023 HPI : Patient is here for approximately 1 year follow-up for a LEFT total knee replacement and right hip replacement.?Patient reports good pain relief in the knee/hip and satisfactory latter-day of function in terms of activities of daily living. Current condition is improved relative to their pre operative condition. They have not encountered any major problems since their last office visit. She states that she feels amazing. She is pain-free and back to high level of comfort and function. She is approximately 1 year status post joint replacements and is thrilled with the results. Physical Exam : Patient is well nourished, well-developed, in no acute distress, with appropriate mood and affect. The patient is oriented to time, place, and person. Respirations are even and unlabored. The affected limb is well-perfused, with well healed skin incision. The patient demonstrates good knee motion, stability, and strength. The knee moves from -5-120 degrees. Muscle strength is normal. Pedal pulses are palpable. X-Ray: 9 view x-ray study of left knee(s) and right hip obtained during today's office encounter does not show any signs of implant related issues including loosening, malposition, instability, periprosthetic fracture, periosteal reaction or infection. Assessment/Plan : This patient is functioning well after knee arthroplasty. Continue knee conditioning exercises. Awjg-kkx-lytcgmv medications as needed. The patient understands that ultimate failure may occur due to mechanical wear, loosening or breakage. Follow-up at approximately five year post-op is recommended to assess for the possibility of failure. Follow up sooner with any problems. At least 25 minutes were spent reviewing previous charting and radiographs, obtaining history and physical exam, and reviewing treatment plan. This patient was seen and evaluated by Michaelle Vigil MS, PA-C in indirect conjunction with documenting/superv ising provider Tyrell Shafer MD. He agrees with history, physical examination, tests/diagnostic imaging, and treatment plan. Not available 06/13/2023 11:45:54 Plan of Treatment Reminders Order Date Submit Date Provider Last Modified By Organization Details Last Modified Time Details Appointments None record ed. Lab None record ed. Referral None record ed. Procedures None record ed. Surgeries None record ed. Imaging XR, knee, 3 view 024 06/13/19 24 [email or web address] [facility], [address], [place], [address], 4 11:44:21 XR, hip, unilat eral, 2 or 3 view 024 06/13/19 24 [email or web address] [facility], [address], [place], [address], 4 11:44:22 XR, hip, unilat eral, 2 or 3 view 023 11/10/19 23 [email or web address] [facility], [address], [place], [address], 3 14:35:31 XR, knee, 3 view 023 08/07/19 23 [facility], [address], [place], [address], 3 13:56:37 Medication Orders None record ed. Patient TargetsNo targets recorded. Patient Instructions Encounter Date Encounter Id Patient Instructions Last Modified By Organization Details Last Modified Time 08/06/2022 [id number] physical therapy * - Status post right total hip arthroplasty on 06/27/22. Eval and treat per ANGELIQUE protocol. [email or web address] Not available 08/31/2022 11:33:14 5 view x-ray geeta dy of knee is obtained today it shows her to be status post left-sided total knee arthroplasty with press-fit prosthetics. There is no signs of loosening. No signs of periprosthetic fracture. These x-rays are compared to ones done on 06/22/2022 and are unchanged. Not available 08/06/2022 13:37:00 11/09/2022 AP pelvis, AP an d lateral radiographs of the right hip taken today demonstrate a right total hip replacement with components in appropriate position without any signs of hardware related complication. Not available 11/09/2022 13:56:01 Reason for Referral None Reported. Problems Name Problem SNOMED Code Status Onset Date Resolution Date Notes Provider Name and Address Organization Details Recorded Time History of total replacement of right hip joint 9550029159719 00 Active 2023 MICHAELLE VIGIL PA-C [address], [place], [address], [place] [facility] 4 11:43:46 History of left total knee replacement 5967221781421 105 Active 2023 MICHAELLE VIGIL PA-C [address], [place], [address], [place] [facility] 4 11:44:03 Osteoarthri tis of right hip joint 1097763710503 07 Active 2022 Tyrell Shafer MD [address], [facility] [place], [address], [place] [facility] 3 09:34:34 Problem Notes None recorded. Procedures Surgical History Date Name Laterality Status Provider Name and Address Organization Details Recorded Time Knee Surgery completed Josh Peace [facility] 08/06/2022 13:10:40 Hip Surgery completed Josh Sethi [place] [facility] 08/06/2022 13:10:45 Imaging Results None recorded. Procedure Notes None recorded. Medical Equipment None Reported. Allergies No known drug allergies Medications Name Sig Start Date Stop Date Status Note LastModified by Organization Details LastModified Time senna s 8.6-50mg tablets TAKE 1 TABLET BY MOUTH 2 TIMES A DAY FOR 30 DAYS. FOR CONSTIPAT ION WHILE TAKING OPIOD MEDICATIO NS. 06/13 completed Not Available Not Available Not Available amoxicillin 500 mg capsule TAKE 4 CAPSULES BY MOUTH 1 HOUR BEFORE DENTAL PROCEDURE 06/13 completed Not Available Not Available Not Available nystatin 100,000 unit/mL oral suspension SHAKE BOTTLE AND SWISH AND SPIT 5 ML FOUR TIMES DAILY FOR 2 TO 4 WEEKS active Not Available Not Available No t Available doxycycline hyclate 100 mg capsule TAKE 1 CAPSULE BY MOUTH TWICE DAILY FOR 10 DAYS active Not Available Not Available No t Available azithromyci n 250 mg tablet TAKE DIRECTED ON PACKAGE X5 DAYS active Not Available Not Available No t Available ondansetron HCl 8 mg tablet TAKE 1 TABLET BY MOUTH EVERY 8 HOURS NEEDED FOR NAUSEA 06/13 completed Not Available Not Available Not Available meloxicam 15 mg tablet TAKE 1 TABLET BY MOUTH EVERY DAY FOR 15 DAYS 06/13 completed Not Available Not Available Not Available ondansetron HCl 4 mg tablet 06/13 completed Not Available Not Available Not Available Synthroid 125 mcg tablet active Not Available Not Available Not Available prednisone 20 mg tablet TAKE 2 TABLETS BY MOUTH DAILY FOR 5 DAYS 06/13 completed Not Available Not Available Not Available sertraline 100 mg tablet active Not Available Not Available Not Available omeprazole 40 mg capsule,del ayed release active Not Available Not Available Not Available aspirin 81 mg tablet,pedro yed release TAKE 1 TABLET BY MOUTH TWICE DAILY 06/13 completed Not Available Not Available Not Available doxycycline monohydrate 100 mg tablet TAKE 1 TABLET BY MOUTH TWICE DAILY active Not Available Not Available No t Available acetaminoph en 500 mg tablet TAKE 2 TABLET BY MOUTH EVERY 8 HOURS 06/13 completed Not Available Not Available Not Available ondansetron 8 mg disintegrat ing tablet active Not Available Not Available N ot Available Serevent Diskus 50 mcg/dose powder for inhalation 06/13 completed Not Available Not Available Not Available cefadroxil 500 mg capsule TAKE 2 CAPSULES BY MOUTH EVERY DAY FOR 7 DAYS 06/13 completed Not Available Not Available Not Available methocarbam ol 750 mg tablet TAKE 1 TABLET BY MOUTH EVERY 6 HOURS NEEDED 06/13 completed Not Available Not Available Not Available benzonatate 100 mg capsule TAKE 1 CAPSULE BY MOUTH THREE TIMES DAILY FOR 5 DAYS FOR COUGH active Not Available Not Available No t Available cephalexin 500 mg capsule TAKE 1 CAPSULE BY MOUTH FOUR TIMES DAILY active Not Available Not Available No t Available pantoprazol e 40 mg tablet,pedro yed release TAKE 1 TABLET BY MOUTH EVERY DAY 06/13 completed Not Available Not Available Not Available omeprazole 20 mg capsule,del ayed release active Not Available Not Available Not Available cephalexin 500 mg tablet TAKE 1 TABLET BY MOUTH EVERY 6 HOURS active Not Available Not Available No t Available montelukast 10 mg tablet active Not Available Not Available Not Available oxycodone 5 mg tablet TAKE 1 TO 2 TABLETS BY MOUTH EVERY 4 HOURS NEEDED FOR PAIN 06/13 completed Not Available Not Available Not Available Flovent HFA 44 mcg/actuati on aerosol inhaler 06/13 completed Not Available Not Available Not Available Advair HFA 230 mcg-21 mcg/actuati on aerosol inhaler active Not Available Not Available Not Available GaviLyte-G 236 gram-22.74 gram-6.74 gram-5.86 gram oral solution FOLLOW DIRECTION S GIVEN BY DOCTOR active Not Available Not Available No t Available Stimulant Laxative Plus 8.6 mg-50 mg tablet TAKE 1 TABLET BY MOUTH TWICE DAILY 06/13 completed Not Available Not Available Not Available Vitals Date Recorded Body height Body mass index (BMI) Body weight Provider Name and Address Organization Details Last Updated DateTime 08/06/2022 154.94 cm 42.5 kg/m2 326176.[address] [place] [facility] 08/06/2022 13:08:04 Date Recorded Body height Body mass index (BMI) Body weight Provider Name and Address Organization Details Last Updated DateTime 09/03/2022 154.94 cm 42.5 kg/m2 478866.[address] [place] [facility] 09/03/2022 10:43:47 Date Recorded Body height Body mass index (BMI) Body weight Provider Name and Address Organization Details Last Updated DateTime 11/09/2022 154.94 cm 42.5 kg/m2 109656.[address] [facility] 11/09/2022 13:26:01 Social History Question Answer Notes LastModified by Organizat ion Details LastModified Time Tobacco Smoking Status Former Smoker Josh Sethi null, [place] [facility] 08/06/2022 13:08:53 What Is Your Level Of Alcohol Consumption? None [email or web address] Information not available 08/06/2022 Which Illicit Or Recreational Drugs Have You Used? Marijuana [email or web address] Information not available 08/06/2022 When Did You Quit Smoking? 16+yearssincel astcigarette [email or web address] Information not available 08/06/2022 Do You Use Any Illicit Or Recreational Drugs? Yes [email or web address] Information not available 08/06/2022 Do You Or Have You Ever Used Any Other Forms Of Tobacco Or Nicotine? No [email or web address] Information not available 08/06/2022 Sex: Unknown Functional Status None recorded. Mental Status None recorded. Family History Relationship Description Onset Age of this Age Resolved Age Notes LastModified by Organization Details LastModified Time Father Hypertensive disorder [email or web address] Not available 13:10:19 Father Heart failure [email or web address] Not available 13:10:30 Brother Hypertensive disorder [email or web address] Not available 13:10:19 Medical History Condition Response Reflux/GERD Y Hypothyroidism Y Asthma Y Gynecological HistoryNo gynecological history recorded. Obstetrics History GPAL:G 0 P 0 0 0 0 Past Encounters Encounter ID Performer Location Encounter Start Date Encounter Closed Date Diagnosis/Indication Diagnosis SNOMED-CT Code Diagnosis ICD10 Code Diagnosis Note [id number] MD ILDA Perez [address] [facility] [address] [facility] [place] [address] 08/06/2022 12:56:18 08/06/2022 13:50:38 Pain of left knee joint 0063733906 44114 M25.562 Arthritis of right hip 1935621854 074088 M13.851 [id number] MD ILDA Perez [address] [facility] [address] [facility] [place] [address] 09/03/2022 10:40:26 09/03/2022 10:55:46 Osteoarthritis of right hip joint 3593342124 74060 M16.11 MD ILDA Perez [facility] [address] [facility] [address] [place] [address] 11/09/2022 13:21:09 11/09/2022 13:56:17 History of right hip replacement 3439250776 729394 Z96.641 Aftercare 663788671 Z47. 1 [id number] [facility] [address] [facility] [address] [place] [address] 06/13/2023 11:15:18 06/13/2023 11:44:21 History of total replacement of right hip joint 8850737690 96279 Z96.641 History of left total knee replacement 6818838092 985920 Z96.652 Health Concerns Section Related Observation LastModified by Organization Detai ls LastModified Time None Recorded Concern Status LastModified by Organization Details LastModified Time None Recorded Advance Directives Directive None Recorded Payers Encounter Date Sequence Insurance Name Policy Number Policy Arevalo Covered Member ID Arevalo Member ID Guarantor Name 08/06/2022 1 [facility]LY [facility] [id number] Diana Langlade [id number] 2 Diana Langlade 09/03/2022 1 [facility]LY [facility] [id number] Diana Langlade [id number] Diana Langlade 11/09/2022 1 [facility]LY [facility] [id number] Diana Langlade [id number] Diana Langlade 06/13/2023 1 [facility]LY [facility] [id number] Diana Langlade [id number] Diana Langlade Notes Date Note Type Note Provider Name and Address Organization Details Recorded Time 08/06/2022 text/html 47-year-old lita aguilar is presenting for routine surveillance. She is 3 months status post left-sided total knee arthroplasty. She is 3 weeks status post right-sided total hip arthroplasty. She is encounter no specific problems since her last visit to the office. She has required Tylenol at most. She has been doing physical therapy regularly and has 8 more sessions planned going forward specifically to the knee. She has yet to start physical therapy on the hip. She continues to take her aspirin as DVT prophylaxis. She denies chest pain shortness of breath fever and chills. MICHAELLE VIGIL PA-C [address] [facility],[address] [address], [place], [address], [place] [facility] 08/06/2022 13:42:21 09/03/2022 text/html 47-year-old fema le is 7 weeks status post right total hip arthroplasty. She is thrilled with her outcome and is very pleased with her choice to get a new hip. She is doing physical therapy regularly and making good progress. Her only concern is the fact that she perceives her right leg to be now longer than the left side. She states it was always a little bit longer but it is now more so. She states that this has caused an alteration to her gait and she is concerned that it could cause problems going forward. MICHAELLE VIGIL PA-C [address] [facility] [address], [place], [address], [place] [facility] 09/03/2022 10:59:54 OBGyn Episode No OBEpisode recorded.
[2024-06-11 16:11] LABS: Erythrocyte Sedimentation Rate 6 MM/HR (0-20)
[2024-06-12 19:09] LABS: Immunoglobulin E 39 kU/L (<OR=114)
[2024-06-15 19:57] LABS: Anti DNA DS Antibody <1 IU/mL
[2024-06-17 12:13] LABS: Anti Nuclear Antibody Pattern Nuclear, Homogeneous; Anti Nuclear Antibody Screen POSITIVE (NEGATIVE)
== END 2024-06-11 13:40 | disposition home or self-care (01) ==
LOC: HO.LAB 13:39
PROVIDERS: PCP Nurse Practitioner; Visit Provider Hospitalist
DX: J44.9 Chronic obstructive pulmonary disease, unspecified (principal); T78.40XA Allergy, unspecified, initial encounter; J45.909 Unspecified asthma, uncomplicated; K21.9 Gastro-esophageal reflux disease without esophagitis; J44.89 Other specified chronic obstructive pulmonary disease
CPT/HCPCS: 36415; 82785; 85025; 85652; 86038; 86039; 86225

== ENCOUNTER 2024-06-11 13:39 | Outpatient (AMB) | payer OTHER, SELFPAY ==
[2024-06-11 13:43] VITALS: BP 142/98; PULSE 90; O2SAT 95; BMI 44.1
--- NOTE | 2024-06-11 13:43 | MHC.OFFVIS ---
Vital Signs 06/11/24 13:43 Height 5 ft 3 in Weight 249 lb 1.957 oz BMI 44.1 BP 142/98 H Blood Pressure Location Rt brachial Position Sitting Pulse 90 Pulse Source Pulse Oximeter Pulse Oximetry (%) 95 Oxygen Delivery Method Room Air Intake Visit Reasons: Asthma Allergies No Known Allergies Allergy (Verified 06/11/24 13:48) HPI Comments Details: The patient is a 48 year woman who apparently started developing respiratory issues the last for 5 years. She is having issues with hoarseness laryngitis. 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 She has had episodes of asthma that had been frequent. Requiring multiple courses of prednisone antibiotics. She will usually go to an urgent care. The last time she did go to the [facility] ED. That was back in May. I did look at her imaging studies. The patient had a chest x-ray without any acute disease. The patient has never had allergy testing. She does have a cat a dog and a bird. On examination she does have significant wheezing. She had been taking Advair HFA for many years. Although with her vocal cord dysfunction not sure if the inhalers are actually helping her to the fullest degree. She has been also using allergy medication. Will go ahead and request allergy testing at this time. Will start her on budesonide via nebulizer to try to improve her significant wheezing and avoid prednisone. The patient also may have a component of microaspiration specially with a vocal cord paralysis. She does have a hiatal hernia. She did have a barium swallow without any significant reflux although explained to her that she likely does because of her hiatal hernia. We did talk about the importance of sleeping elevated in the reflux diet. She will make some lifestyle changes this time. In addition to that will start her on a promotility agent azithromycin for least a month and see this provides some relief as well. The patient returns 6-8 weeks after her allergy testing. Will hold off on spirometry specially with a vocal cord paralysis. The patient will be following up with ENT soon and she is going to have a Botox injection. 09/26/2023 the patient is here for a pulmonary follow-up visit. The patient is doing a little better. She did start budesonide has continued the Advair. Still having wheezing on a regular basis still requiring her rescue inhaler regularly. She also completed the antibiotics. She is monitoring closely for any reflux disease and following reflux diet. Overall she is doing a little better. We did look at her blood work demonstrating significant eosinophilia. 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 Based on the fact that she is maximized on respiratory therapy and requiring frequent prednisone and still having wheezing requiring her rescue inhaler on a daily basis consistent with severe persistent asthma the patient be a great candidate for interleukin 5 inhibitors. I believe Fasenra be a very good option for her. Will be requested from her insurance. This will minimize her steroid use and therefore decrease her risk of future adverse effects from the steroids and improve her overall health and quality of life. So will go ahead and maximize her respiratory therapy and request biologics at this time. She does have some lower extremity edema as well. The patient does not taking additional salt. She is very careful with that. She does have an elevated blood pressure. She does have snoring and does have an elevated Thayer score of 10/24. We did discuss considering sleep study. Will discuss it further once her respiratory symptoms are improved. 01/17/2024 the patient is here for a pulmonary follow-up visit. The patient has been very sick with her asthma. Has had multiple exacerbations already requiring prednisone. She does have severe persistent asthma with frequent exacerbations. She does have an elevated eosinophil count and we did request biologic therapy, Fasenra. However was denied by insurance for an unclear reason. Today she is having significant wheezing on examination. She will need additional steroids and receive a Solu-Medrol IM x1. For additional information for insurance purposes we did perform a spirometry at the bedside demonstrating severe obstruction consistent with her severe persistent asthma which is uncontrolled. Patient will need additional prednisone will continue her maximize respiratory therapy as she is so doing with good compliance. Will go ahead and resubmit to the insurance company the need for biologic therapy. I do believe Fasenra be a very good option for her. Although Nucala would also be a good alternative. Will work with insurance company in order to get the patient's medications available in order for her to improve her overall symptoms. 02/06/2024 the patient is here for a pulmonary follow-up visit. She continues have significant chronic bronchitis. Significant obstructive airway disease. She continues on the Trelegy in addition to budesonide nebs. She is having hoarseness. She has an ENT evaluation. I bet is likely related to her respiratory medications and vocal cord paralysis. The patient is also requiring frequent doses of prednisone for tapers. Will go ahead and prescribe her Daliresp with the help of decreasing her exacerbations and prednisone needs. The patient also benefit from send biologic therapy. Fasenra will be a very good option for her since her eosinophils are elevated. She has yet to hear back from her insurance company hopefully we can get approval and reasonable co-pay for her for to start her biologic shots. Imaging study she had an x-ray back in 12/10/2023 which I personally reviewed demonstrating no acute disease. 04/20/2024 the patient is here for pulmonary sick visit. She is having hard time with the breathing. She did finish a course of prednisone helpful little bit but then when she weans off she starts having hard time with the breathing. She has severe persistent asthma. The patient was tried to be placed on Fasenra but is extremely expensive for her. Therefore she continues on the Trelegy in addition to the budesonide nebs. She does not like to go on prednisone that it does help her breathing some. The patient also has chronic bronchitis and COPD from the ongoing symptoms. The patient was prescribed Daliresp but it was again denied by her insurance. Will going to submitted again specially since she has significant chronic bronchitis and significant needs for prednisone. The patient has significant wheezing today she also has some chest congestion. Will go ahead and start her another course of prednisone in addition to azithromycin. The hope is to be able to start her on biologic therapy I do believe the Dupixent will be a very good option for her. In the meantime will going to have her start the Daliresp and azithromycin. The patient will return 2 months. If she is not better by then will consider additional imaging studies and consider bronchoscopy. 06/11/2024 the patient is here for a pulmonary follow-up visit. She is feeling better. She continues to be on small dose of prednisone though. She continues on a respiratory therapy. She did start the budesonide and also started the Daliresp. She does tolerate the Daliresp well. She also was looking to starting Dupixent. She is awaiting see if the medication be covered as far as the copayments. In the meantime she continues to do well on the current therapy. She still has the issue with her paralyzed vocal cord. She is going to need another Botox injections in. She is going to follow-up with ENT. Otherwise patient is without any other complaints. Will follow-up in 6 months. If she has any issues prior to that she will call for an earlier assessment. [facility] Medical History (Updated 06/11/24 @ 20:52 by Josh Infante MD) COPD (chronic obstructive pulmonary disease) Lower extremity edema Asthma-COPD overlap syndrome Hiatal hernia Paralysis of right vocal cord Asthma Allergy Social History Patient Tobacco Use Status: Former Tobacco user Tobacco use type: Cigarette Years Smoked: 10 years, quit 20+ yrs ago Second Hand Smoke Exposure: Yes Review of Systems Const Denies fever(s) Eyes Reports no additional complaints ENT Reports nasal congestion Card Denies chest pain and Denies dyspnea on exertion Resp Reports cough, Denies dyspnea on exertion and Denies wheezing GI Reports heartburn Musc Reports no additional complaints Skin/Breast Denies rash [place]/Lymph Denies lymphadenopathy Aller/Immun Denies wheezing Physical Exam Vital Signs: Last Vital Signs Pulse 90 06/11/24 13:43 BP 142/98 H 06/11/24 13:43 Pulse Ox 95 06/11/24 13:43 Oxygen Delivery Method Room Air 06/11/24 13:43 BMI result Body Mass Index 44.1 Const General: comfortable HEENT Head: Yes normocephalic Chest Chest palpation & inspection: normal inspection of the chest Resp Effort & Inspection: normal respiratory effort and prolonged expiratory phase Auscultation: wheezes and diminished lung sounds Cardio Heart sounds: S1 normal heart sound present and S2 normal heart sound present GI Palpation (GI): Soft to palpation Skin General skin exam: no rashes or lesions noted Extrem General: No cyanosis and Yes edema Assessment & Plan Assessment & Plan (1) Asthma: Code(s): J45.909 - Unspecified asthma, uncomplicated Category: Medical Qualifiers: Asthma complication type: uncomplicated Asthma persistence: persistent Asthma severity: severe Qualified Code(s): J45.50 - Severe persistent asthma, uncomplicated (2) Allergy: Code(s): T78.40XA - Allergy, unspecified, initial encounter Category: Medical Qualifiers: Encounter type: initial encounter Qualified Code(s): T78.40XA - Allergy, unspecified, initial encounter (3) Paralysis of right vocal cord: Code(s): J38.01 - Paralysis of vocal cords and larynx, unilateral Category: Medical (4) Hiatal hernia: Code(s): K44.9 - Diaphragmatic hernia without obstruction or gangrene Category: Medical (5) Lower extremity edema: Code(s): R60.0 - Localized edema Category: Medical (6) COPD (chronic obstructive pulmonary disease): Code(s): J44.9 - Chronic obstructive pulmonary disease, unspecified Category: Medical Qualifiers: COPD type: unspecified COPD Qualified Code(s): J44.9 - Chronic obstructive pulmonary disease, unspecified Plan continue Trelegy 200 continue budesonide via neb ELVA as needed Requesting Dupixent biologic therapy to treat her severe eosinophilic asthma Daliresp (Roflumilast) 500mcg daily solumedrol IM today, then start Prednisone with slow taper, will wean down to 5mg every other day nebulizer Low Na diet F/U 6 months Orders: Orders Immunoglobulin E Today J44.89 - Other specified chronic obstructive pulmonary disease, T78.40XA - Allergy, unspecified, initial encounter Complete Blood Count Auto Diff Today J44.89 - Other specified chronic obstructive pulmonary disease, T78.40XA - Allergy, unspecified, initial encounter Anti DNA DS Antibody Today J44.89 - Other specified chronic obstructive pulmonary disease, T78.40XA - Allergy, unspecified, initial encounter DIANE Reflex Titer and Pattern Today J44.89 - Other specified chronic obstructive pulmonary disease, T78.40XA - Allergy, unspecified, initial encounter Erythrocyte Sedimentation Rate Today J44.89 - Other specified chronic obstructive pulmonary disease, T78.40XA - Allergy, unspecified, initial encounter Coding Level of Care Code Est Pt Level 4 (30982) Diagnoses Severe persistent asthma without complication J45.50 Asthma complication type: uncomplicated Asthma persistence: persistent Asthma severity: severe Allergy, initial encounter T78.40XA Encounter type: initial encounter Paralysis of right vocal cord J38.01 Hiatal hernia K44.9 Lower extremity edema R60.0 Chronic obstructive pulmonary disease, unspecified COPD type J44.9 COPD type: unspecified COPD Time Spent (min) 17
--- OUTSIDE RECORDS SUMMARY | 2024-06-11 14:36 | XMS_ITS | Clinical Summary ---
Author Organization [facility] Address [address] [place] [address] Care Team Providers Care Collection Supervisor Name Role Phone Community, Pcp Primary Care Provider Unavailabl e Allergies No known active allergies Medications Medication Sig Dispensed Refills Start Date End Date Status CALCIUM + D 600-200 MG-UNIT OR TABS 1 TABLET DAILY 0 Activ e Ipratropium-Albutero l 0.5-2.5 (3) MG/3ML SolutionIndications: Mild persistent asthma without complication Inhale 3 mL into the lungs 4 times daily as needed (Shortness of breath and/or wheezing). 120 Vial 3 05/09/2020 Active Combivent Respimat 20-100 MCG/ACT Aero Soln Inhale 1 Puff into the lungs every 4 hours as needed for Shortness of Breath. 0 12/31/2020 Active Cholecalciferol (Vitamin D) 50 MCG (2000 UT) Cap Take 1 Capsule by mouth. 0 07/14/2021 Active Elderberry 500 MG Cap Take by mouth. 0 Active Ascorbic Acid (Vitamin C CR) 1000 MG Tab CR Take 1 Tablet by mouth. 0 Active fluticasone-salmeter ol (Advair HFA) 230-21 MCG/ACT inhalerIndications:M oderate persistent asthma with acute exacerbation Inhale 2 Puffs into the lungs 2 times daily for 360 days. 1 g 5 11/21/2022 Active omeprazole (PRILOSEC) 20 MG capsule Take 1 Capsule by mouth daily. 90 Capsule 1 12/14/2022 Active sertraline (ZOLOFT) 100 MG tablet Take 1 Tablet by mouth daily. 90 Tablet 1 12/14/2022 Active levothyroxine 125 MCG tablet Take 1 Tablet by mouth every morning (before breakfast). 90 Tablet 1 12/14/2022 Active Doxycycline Monohydrate (ADOXA) 100 MG tablet Take 1 Tablet by mouth 2 times daily. 14 Tablet 0 12/14/2022 Active cephALEXin (KEFLEX) 500 MG capsule Take 1 Capsule by mouth 4 times daily. 28 Capsule 0 12/14/2022 Active montelukast (SINGULAIR) 10 MG tabletIndications:Mo derate persistent asthma without complication Take 1 Tablet by mouth at bedtime. 30 Tablet 11 05/02/2023 Active Active Problems Problem Noted Date Thrush, oral 11/21/2022 Last Assessment & Plan: Nystatin 4 times a day for 10 days. Swish and swallow. Hoarseness 11/21/2022 Last Assessment & Plan: Could be secondary to GERD and also to the oral thrush. Given that this hoarseness has been chronic I will do a referral to ENT. Hyperlipidemia 07/12/2022 Total knee replacement status 07/12/2022 Overview: 05/14 left TKR Vitamin D deficiency 07/14/2021 GERD (gastroesophageal reflux disease) 0 07/12/2021 Asthma 11/18/2019 Last Assessment & Plan: Asthma is now under control. Patient has not had any more exacerbations We will continue with the followin. Advair 230 mcg 1 puff twice a day 2. Singulair 10 mg p.o. every day 3. Continue with albuterol as needed Hypothyroidism 07/23/2018 Morbid obesity with BMI of 45.0-49.9, ad ult 08/11/2013 Radial head fracture 10/11/2008 HYPERTHYROID 02/18/2006 Overview: Graves disease, dx 01/25 Hyperparathyroidism 02/11/2006 Overview: parathyroid gland resected 2002 DEPRESSION 12/30/2005 Resolved Problems Problem Noted Date Resolved Date Encounter for preoperative pulmonary examination 05/08/2022 07/12/2022 Last Assessment & Plan: Patient will undergo surgery for knee replacement. From the pulmonary standpoint of view her wrist is low to intermediate for pulmonary complications. We will recommend the followin. Treat airflow obstruction with the medications that she is taking right now, Serevent and Flovent 2. Peak flow before surgery 3. Limit duration of surgery to less than 3 hours if possible 4. Early mobilization 5. Chest physical therapy with incentive spirometry postop 6. If needed noninvasive ventilation 7. 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 03/30/2019 Immunizations Name Administration Dates Next Due Hepatitis B > 19yrs 06/26/2011,05/29/2011 Buuhfwh-Obssd-Ovtmtzva + 05/29/2011 Yxtre-Bpmhy-Okiuoulm + 05/29/2011 PPD-RBMG 09/19/2011,05/29/2011 Svhhlsj-Cxaos-Jytjnpav + 05/29/2011 TD (STATE SUPPLIED FOR ADULTS AND CHILDREN) 04/22,07/22/1999 Tdap 06/02/2009 Varicella Titre-Positive + 05/29/2011 Family History Medical History Relation Name Comments Hypertension Father Diabetes Maternal Grandmother alive and well Mother Thyroid Disorder Mother's side cousins x 2 CA Breast Negative Hx CA Colon Negative Hx CA Ovarian Negative Hx Relation Name Status Comments Brother Alive Father Alive Maternal Grandfather Maternal Grandmother Mother Alive Mother's side Paternal Grandfather Paternal Grandmother Alive Sister Alive Social History Tobacco Use Types Packs/Day Years Used Date Smoking Tobacco: Former Cigarettes 0.3 13 0 1989 - 2002 Smokeless Tobacco: Never Tobacco Cessation:Counseling Given: Not Answered Comments:2002, started @ age 14 Alcohol Use Standard Drinks/Week Comments Yes 0 (1 standard drink = 0.6 oz pur e alcohol) rarely Sex Assigned at Date Recorded Not on file Job Start Date Occupation Industry Not on file Not on file Not on file Last Filed Vital Signs Vital Sign Reading Time Taken Comments Blood Pressure 156/74 11/21/2022 2:05 PM EDT Pulse 88 11/21/2022 2:05 PM EDT Temperature 36.2 ??C (97.2 ??F) 11/21/2022 2:05 PM ED T Respiratory Rate 14 11/21/2022 2:05 PM EDT Oxygen Saturation 98% 11/21/2022 2:05 PM EDT Inhaled Oxygen Concentration - - Weight 108.4 kg (239 lb) 11/21/2022 2:05 PM EDT Height 157.5 cm (5' 2 ) 11/21/2022 2:05 PM EDT Body Mass Index 43.71 11/21/2022 2:05 PM EDT Plan of Treatment Health Maintenance Due Date Last Done Comments Covid-19 Vaccine (#1) 01/07/1974 HEPATITIS C SCREENING 07/08/1991 BASELINE HEALTH EXAM 40-64 07/07/201305/29, 02/11/2006, 02/11/2006, Additional history exists CERVICAL CANCER SCREENING 06/21/20192016, 11/19/2012, 10/30/2011, Additional history exists MAMMOGRAM 10/25/2022 10/25/2021, 12/22, 01/09/2018, Additional history exists COLON CANCER SCREENING 07/08/2023 SHINGLES VACCINE (1 of 2) 07/08/2023 INFLUENZA (#1) 2023 04/25/2020 (Refu sed), 01/22/2019 (Refused), 02/04/2018 (Refused) BMI CHECK/ADVISE 04/22/2024 11/21/2022, , 09/19/2022, Additional history exists CHOLESTEROL SCREENING 07/13/2027 07/12/2022 , 07/12/2021, 07/21/2018, Additional history exists DTAP/TDAP/TD (3 - Td or Tdap) 05/06/2029, 06/02/2009, 07/22/1999 PNEUMOCOCCAL VACCINE FOR HIG H RISK PATIENTS (#2) 2038 04/25/2020 (Refused) Care Teams Collection Supervisor Relationship Specialty Start Date End Date [facility], Pcp PCP - General Internal Medicine 07/05/23
--- OUTSIDE RECORDS SUMMARY | 2024-06-11 14:36 | XMS_ITS | Encounter Summary ---
Author Organization [facility] Address [address] [place] [address] Care Team Providers Care Paper Cone Drying Machine Operator Name Role Phone Mayra Moctezuma MD Primary Care Provider [phone] [facility], Pcp Primary Care Provider Unavailabl e Reason for Visit * Reason Onset Date Comments refill request 05/01/2023 Encounter Details Date Type Department Care Team Description 05/01/2023 Refill Pulmonology - [address] [place] [phone] Murray Barton MD refill request Social History Tobacco Use Types Packs/Day Years Used Date Smoking Tobacco: Former Cigarettes 0.3 13 0 1989 - 2002 Smokeless Tobacco: Never Comments:2002, started @ age 14 Alcohol Use Standard Drinks/Week Comments Yes 0 (1 standard drink = 0.6 oz pur e alcohol) rarely Sex Assigned at Date Recorded Not on file Job Start Date Occupation Industry Not on file Not on file Not on file documented as of this encounter Miscellaneous Notes * Telephone Encounter - Karen Dumont - 05/01/2023 11:31 AM EST SHIRA-11/2022 Nothing upcoming but Linda contacted last week to book appt. documented in this encounter Plan of Treatment Not on file documented as of this encounter Visit Diagnoses Diagnosis Moderate persistent asthma without complication Unspecified asthma documented in this encounter Care Teams Paper Cone Drying Machine Operator Relationship Specialty Start Date End Date Mayra Moctezuma MD [address] [place] [id number] PCP - General 05/22/99 07/04/23 [facility], Pcp [address] [place] [id number] PCP - General Internal Medicine 07/05/23 documented as of this encounter
--- OUTSIDE RECORDS SUMMARY | 2024-06-11 14:36 | XMS_ITS ---
Author Name [facility] Organization Unknown History of Medication Use Medication Directions Dispensed Refills Start Date End Date Stat GaviLyte-G 236 gram-22.74 gram-6.74 gram-5.86 gram oral solution FOLLOW DIRECTIONS GIVEN BY DOCTOR active Stimulant Laxative Plus 8.6 mg-50 mg tablet TAKE 1 TABLET BY MOUTH TWICE DAILY active amoxicillin 500 mg capsule Take 4 tablets one hour prior to dental procedure 11/09/2022 4 active cephalexin 500 mg tablet TAKE 1 TABLET BY MOUTH EVERY 6 HOURS active Serevent Diskus 50 mcg/dose powder for inhalation active acetaminophen 500 mg tablet TAKE 2 TABLET BY MOUTH EVERY 8 HOURS 4 completed nystatin 100,000 unit/mL oral suspension SHAKE BOTTLE AND SWISH AND SPIT 5 ML FOUR TIMES DAILY FOR 2 TO 4 WEEKS active montelukast 10 mg tablet active meloxicam 15 mg tablet TAKE 1 TABLET BY MOUTH EVERY DAY FOR 15 DAYS active benzonatate 100 mg capsule TAKE 1 CAPSULE BY MOUTH THREE TIMES DAILY FOR 5 DAYS FOR COUGH active doxycycline hyclate 100 mg capsule TAKE 1 CAPSULE BY MOUTH TWICE DAILY FOR 10 DAYS active prednisone 20 mg tablet TAKE 2 TABLETS BY MOUTH DAILY FOR 5 DAYS active ondansetron HCl 8 mg tablet TAKE 1 TABLET BY MOUTH EVERY 8 HOURS NEEDED FOR NAUSEA active senna s 8.6-50mg tablets TAKE 1 TABLET BY MOUTH 2 TIMES A DAY FOR 30 DAYS. FOR CONSTIPATION WHILE TAKING OPIOD MEDICATIONS. active sertraline 100 mg tablet active doxycycline monohydrate 100 mg tablet TAKE 1 TABLET BY MOUTH TWICE DAILY active Problems Problem Status Onset Date Problem Type Date of Resoluti on Source History of left total knee replacement active 2023-06-13 ProblemAct [facility] Osteoarthritis of right hip joint active 2022-07-13 ProblemAct [facility] History of total replacement of right hip joint active 2023-06-13 ProblemAct [facility]
--- OUTSIDE RECORDS SUMMARY | 2024-06-11 14:36 | XMS_ITS | Encounter Summary ---
Author Organization [facility] Address [address] [place] [address] Care Team Providers Care Beater Boss Name Role Phone Mayra Moctezuma MD Primary Care Provider [phone] [facility], Pcp Primary Care Provider Unavailabl e Encounter Details Date Type Department Care Team Description 06/01/2019 Wax Engraver Report Medical Records [address] [place] [phone] Eleazar Shin MD [address] [place] [id number] Social History Tobacco Use Types Packs/Day Years Used Date Smoking Tobacco: Former Smokeless Tobacco: Never Comments:2002, started @ age 14 Alcohol Use Standard Drinks/Week Comments Yes 0 (1 standard drink = 0.6 oz pur e alcohol) rarely Sex Assigned at Date Recorded Not on file Job Start Date Occupation Industry Not on file Not on file Not on file documented as of this encounter Plan of Treatment Not on file documented as of this encounter Visit Diagnoses Not on filedocumented in this encounter Care Teams Beater Boss Relationship Specialty Start Date End Date Mayra Moctezuma MD [address] [place] [address] PCP - General 05/22/99 07/04/23 [facility], Pcp [address] [place] [address] PCP - General Internal Medicine 07/05/23 documented as of this encounter
--- OUTSIDE RECORDS SUMMARY | 2024-06-11 14:36 | XMS_ITS | Encounter Summary ---
Author Organization [facility] Address [address] [place] [address] Care Team Providers Care Power Ballast Machine Operator Name Role Phone Mayra Moctezuma MD Primary Care Provider [phone] [facility], Pcp Primary Care Provider Unavailabl e Encounter Details Date Type Department Care Team Description 10/15/2022 Telephone Adult Medicine [facility] [address] [place], [place] [phone] Mayra Moctezuma MD [address] [place] [address] Social History Tobacco Use Types Packs/Day Years [...] file Not on file Not on file COVID-19 Exposure Response Date Recorded In the last 10 days, have yo u been in contact with someone who was confirmed or suspected to have Coronavirus/COVID-19? No / Unsure 10/15/2022 11:01 AM EDT documented as of this encounter Plan of Treatment Not on file documented as of this encounter Visit Diagnoses Not on filedocumented in this encounter Care Teams Power Ballast Machine Operator Relationship Specialty Start Date End Date Mayra Moctezuma MD [address] [place] [address] PCP - General 05/22/99 07/04/23 [facility], Pcp [address] [place] [address] PCP - General Internal Medicine 07/05/23 documented as of this encounter
--- OUTSIDE RECORDS SUMMARY | 2024-06-11 14:36 | XMS_ITS | Clinical Summary ---
Author Organization [facility] Address [address] [place] [address] Care Team Providers Care Cleaner And Presser Name Role Phone Mayra Moctezuma MD Primary Care Provider [phone] Allergies No known active allergies Medications Medication Sig Dispensed Refills Start Date End Date Status sertraline (ZOLOFT) 100 MG tablet 0 06/17/2018 Active [place]-3 Fatty Acids (FISH OIL) 875 MG CAPS Take by mouth. 0 Active ELDERBERRY PO Take by mouth. 0 Active Ascorbic Acid ER 1000 MG TBCR Take 1 tablet (1,000 mg total) by mouth daily. 0 Active levothyroxine (SYNTHROID) tablet 125 mcg Take 1 tablet (125 mcg total) by mouth every morning on an empty stomach. 0 Active Calcium Carbonate-Vit D-Min (CALCIUM 1200 PO) Take by mouth. 0 Act libertad Fluticasone Propionate HFA (FLOVENT HFA IN) Inhale into the lungs 2 (two) times a day. 0 Active montelukast (SINGULAIR) 10 MG tablet Take 1 tablet (10 mg total) by mouth every night at bedtime. 0 Active Methylsulfonylmethan e (MSM PO) Take by mouth. 0 Active omeprazole (PriLOSEC) 20 MG capsule Take 1 capsule (20 mg total) by mouth daily. 0 Active salmeterol (Serevent Diskus) 50 MCG/ACT diskus inhaler Inhale 1 inhalation into the lungs 2 (two) times a day. 0 Active Multiple Vitamin (MULTIVITAMIN ADULT PO) 0 03/04/2019 Active Active Problems Problem Noted Date Diagnosed Date Morbid obesity 07/05/2022 Arthritis of right hip 07/28/2018 Family History Medical History Relation Name Comments Hypertension Brother Heart failure Father Hypertension Father No Sig Med Hx Mother Relation Name Status Comments Brother Father Mother Social History Tobacco Use Types Packs/Day Years Used Date Smoking Tobacco: Former Cigarettes Q uit: 1998 Smokeless Tobacco: Never Alcohol Use Standard Drinks/Week Comments No 0 (1 standard drink = 0.6 oz pur e alcohol) Sex and Gender Information Value Date Recorded Sex Assigned at Choose not to disclose 09/2022 2:32 PM EST Gender Identity Not on file Sexual Orientation Not on file Job Start Date Occupation Industry Not on file Not on file Not on file Last Filed Vital Signs Vital Sign Reading Time Taken Comments Blood Pressure 144/82 07/05/2022 3:14 PM EDT Pulse 87 07/05/2022 3:14 PM EDT Temperature 36.1 ??C (97 ??F) 07/05/2022 3:14 PM EDT Respiratory Rate 18 07/05/2022 3:14 PM EDT Oxygen Saturation 99% 07/05/2022 3:14 PM EDT Inhaled Oxygen Concentration - - Weight 102.1 kg (225 lb) 07/05/2022 3:14 PM EDT Height 157 cm (5' 1.81 ) 07/05/2022 3:14 PM EDT Body Mass Index 41.41 07/05/2022 3:14 PM EDT Plan of Treatment Health Maintenance Due Date Last Done Comments Hepatitis B Vaccines (1 of 3 - 3-dose series) 1973 Hepatitis C Screening 1973 COVID-19 Vaccine (#1) 01/07/1974 Depression Screening 1985 BMI Counseling 07/08/1991 Preventative Health Evaluation 07/08/1991 Cervical Cancer Screening (Pap Smear) 1994 Colon Cancer Screening (Colonoscopy) 2018 Breast Cancer Screening (Mammogram) 07/08/2023 Shingrix-Zoster Vaccine (1 o f 2) 07/08/2023 Influenza Vaccine (#1) 2023 DTap / Tdap / Td (3 - Td or Tdap) 05/06/2029 05/06/2019, 06/02/2009, 07/22/1999 Pneumococcal Vaccine Aged Out No long er eligible based on patient's age to complete this topic RSV Ped < 20 months Aged Out No longe r eligible based on patient's age to complete this topic Care Teams Cleaner And Presser Relationship Specialty Start Date End Date Mayra Moctezuma MD PCP - General Internal Medicine 07/25/18
--- OUTSIDE RECORDS SUMMARY | 2024-06-11 14:36 | XMS_ITS | Encounter Summary ---
Author Organization [facility] Address [address] [place] [address] Care Team Providers Care Certified Pedorthotist Name Role Phone Mayra Moctezuma MD Primary Care Provider [phone] [facility], Pcp Primary Care Provider Unavailabl e Reason for Visit * Reason Onset Date Comments Tire Worker Feedback 02/13/2014 [facility] [phone] Encounter Details Date Type Department Care Team Description 02/13/2014 Telephone Adult Medicine [facility] [address] [place] [address] Mayra Moctezuma MD [address] [place] [phone] Tire Worker Feedback ([facility] [phone]) Social History Tobacco Use Types Packs/Day Years Used Date Smoking Tobacco: Former Smokeless Tobacco: Never Comments:2003, started @ age 14 Alcohol Use Standard Drinks/Week Comments Yes 0 (1 standard drink = 0.6 oz pur e alcohol) rarely Sex Assigned at Date Recorded Not on file Job Start Date Occupation Industry Not on file Not on file Not on file documented as of this encounter Miscellaneous Notes * Telephone Encounter - Nisa Goodwin - 02/22/2014 11:18 AM EST JEREMIAH mailed to patient for sensitive information Order faxed to [phone] * Telephone Encounter - Carri Jason - 02/13/2014 8:38 AM EDT No insurance referral required per patient's insurance. Order and notes will be faxed to [facility] and a letter mailed to the patient to schedule their own appointment. Diagnosis morbid obesity Fax to [phone]. Notes and Order documented in this encounter Plan of Treatment Not on file documented as of this encounter Visit Diagnoses Not on filedocumented in this encounter Care Teams Certified Pedorthotist Relationship Specialty Start Date End Date Mayra Moctezuma MD [address] [place] [address] PCP - General 05/22/99 07/04/23 [facility], Pcp [address] [place] [address] PCP - General Internal Medicine 07/05/23 documented as of this encounter
--- OUTSIDE RECORDS SUMMARY | 2024-06-11 14:36 | XMS_ITS | Encounter Summary ---
Author Organization [facility] Address [address] [place] [address] Care Team Providers Care Installations Inspector Name Role Phone Mayra Moctezuma MD Primary Care Provider [phone] [facility], Pcp Primary Care Provider Unavailabl e Reason for Visit * Reason Comments E-prescribe Rx Request Encounter Details Date Type Department Care Team Description 07/27/2021 Refill Pulmonology - [place] [address] [phone] Radha Briceñoya, DISPOSAL OPERATOR [address] [phone] E-prescribe Rx Request Social History Tobacco Use Types Packs/Day Years [...] suspected to have Coronavirus/COVID-19? No / Unsure 07/12/2021 12:53 PM EDT documented as of this encounter Plan of Treatment Not on file documented as of this encounter Visit Diagnoses Diagnosis Mild persistent asthma without complication Unspecified asthma documented in this encounter Care Teams Installations Inspector Relationship Specialty Start Date End Date Mayra Moctezuma MD [address] [place] [id number] PCP - General 05/22/99 07/04/23 [facility], Pcp [address] [place] [address] PCP - General Internal Medicine 07/05/23 documented as of this encounter
--- OUTSIDE RECORDS SUMMARY | 2024-06-11 14:36 | XMS_ITS | Encounter Summary ---
Author Organization [facility] Address [address] [place] [address] Care Team Providers Care Product Owner Name Role Phone Mayra Moctezuma MD Primary Care Provider [phone] [facility], Pcp Primary Care Provider Unavailabl e Reason for Visit * Reason Comments E-prescribe Rx Request Encounter Details Date Type Department Care Team Description 10/06/2012 Refill Adult Medicine [address] [address] Jaguar Sanches PA-C E-prescribe Rx Request Social History Tobacco Use [...] encounter Miscellaneous Notes * Telephone Encounter - Kathie Napier L.P.N. - 10/06/2012 11:04 AM EDT Pt needs a f/u scheduled with pcp before this can be processed * Telephone Encounter - Marcelina Bobo - 10/06/2012 11:01 AM EDT WHEN WAS THE PATIENT'S LAST APPOINTMENT IN ADULT MEDICINE? 08/18/12 WHEN WAS THE LAST TIME THE PATIENT SAW THEIR PCP? 10/10/12 Does patient have an upcoming appointment? [facility] to refill request. Appt due 6 month f/u (THE MEDICATION REQUESTED IS ON THE MED LIST ABOVE) All of the medications requested were on the CURRENT MEDS list Did you check the Pharmacy information above?: YES Patient wants: 30 -day supply Patient would like script to be: E-PRESCRIBED/FAXED TO PHARMACY Is this a mail order prescription request ? NO Indicate how soon the patient needs the script: BY THE END OF THE DAY Patients current insurance carrier is: Payor: BEN Plan: POS $0 [id number] Product Type: POS [id number] documented in this encounter Plan of Treatment Not on file documented as of this encounter Visit Diagnoses Not on filedocumented in this encounter Care Teams Product Owner Relationship Specialty Start Date End Date Mayra Moctezuma MD [address] [place] [address] PCP - General 05/22/99 07/04/23 [place] [phone] PCP - General Internal Medicine 07/05/23 documented as of this encounter
--- OUTSIDE RECORDS SUMMARY | 2024-06-11 14:36 | XMS_ITS | Encounter Summary ---
Author Organization [facility] Address [address] [place] [address] Care Team Providers Care Plastic Roller Name Role Phone Mayra Moctezuma MD Primary Care Provider [phone] [facility], Pcp Primary Care Provider Unavailabl e Reason for Visit * Reason Onset Date Comments Special Procedure 02/17/2019 Appointment-Internal Referral 02/17/2019 Encounter Details Date Type Department Care Team Description 02/17/2019 Telephone Pulmonology - [place] 175 [facility] [address] [place] [address] Ayan Barbosa MD [address] [place] [address] Special Procedure; Appointment-Internal Referral Social History Tobacco Use Types Packs/Day Years [...] encounter Miscellaneous Notes * Telephone Encounter - Shraddha Borja - 02/18/2019 1:18 PM EDT Key, the order was for a Pulmonary Function Test. * Telephone Encounter - Bibiana Chavira PA-C - 02/18/2019 12:05 PM EDT Which procedure/referral is this for? I cannot see this with new EHR upgrade. Bibiana Chavira PA-C * Telephone Encounter - Shraddha Borja - 02/17/2019 9:40 AM EDT Good Morning Bibiana, We have reached out to the patient both by phone and by mail, we have not been able to reach the patient. We are going to remove the order from the system. Thank you and have a wonderful day. documented in this encounter Plan of Treatment Not on file documented as of this encounter Visit Diagnoses Not on filedocumented in this encounter Care Teams Plastic Roller Relationship Specialty Start Date End Date Mayra Moctezuma MD [address] [place] [address] PCP - General 05/22/99 07/04/23 [facility], [address] [address] PCP - General Internal Medicine 07/05/23 documented as of this encounter
--- OUTSIDE RECORDS SUMMARY | 2024-06-11 14:36 | XMS_ITS | Encounter Summary ---
Author Organization [facility] Address [address] [place] [address] Care Team Providers Care Metallurgy Teacher Name Role Phone Mayra Moctezuma MD Primary Care Provider [phone] [facility], Pcp Primary Care Provider Unavailabl e Reason for Visit * Reason Onset Date Comments APPOINTMENT 04/11/2022 Pre-op Needed 04/11/2022 Encounter Details Date Type Department Care Team Description 04/11/2022 Telephone Pulmonology - [place] [address] [address] Jannet Briceño, DEIRDRE [address] [address] APPOINTMENT; Pre-op Needed Social History Tobacco Use Types Packs/Day Years [...] encounter Miscellaneous Notes * Telephone Encounter - Miriam Preciado M.A. - 04/11/2022 4:05 PM EST Appointment scheduled with Dr Barton for May 08, 2022 at 9 am * Telephone Encounter - Marisela Delong - 04/11/2022 3:15 PM EST Date of surgery: 05/15/2022 What surgery is patient having (gall bladder, cataract, appendix, etc...)?: knee replacement Surgeon's name: Office phone number of surgeon: [phone] Fax # for surgeons office: [phone] (Required) Where is surgery being performed? [address] Diagnosis/problem for surgery: Knee replacement Is an EKG required for the pre-op workup? NO PCP: Mayra Moctezuma Did you verify that the insurance below is correct? YES Patients insurance: Payor: BEN / Plan: PPO $0 [employer] [id number] / Product Type: PPO [id number] documented in this encounter Plan of Treatment Not on file documented as of this encounter Visit Diagnoses Not on filedocumented in this encounter Care Teams Metallurgy Teacher Relationship Specialty Start Date End Date Mayra Moctezuma MD [address] [place] [address] PCP - General 05/22/99 07/04/23 [facility], [address] [address] PCP - General Internal Medicine 07/05/23 documented as of this encounter
--- OUTSIDE RECORDS SUMMARY | 2024-06-11 14:36 | XMS_ITS | Encounter Summary ---
Author Organization [facility] Address [address] [place] [address] Care Team Providers Care Preschool Teacher Assistant Name Role Phone Mayra Moctezuma MD Primary Care Provider [phone] [facility], Pcp Primary Care Provider Unavailabl e Reason for Visit * Reason Onset Date Comments refill request 02/06/2021 Encounter Details Date Type Department Care Team Description 02/06/2021 Telephone Adult Medicine [facility] [address] [place] [address] Mayra Moctezuma MD [address] [place] [address] [phone] refill request Social History Tobacco Use Types [...] Exposure Response Date Recorded In the last month, have you been in contact with someone who was confirmed or suspected to have Coronavirus / COVID-19? No / Unsure 01/17/2021 1:04 PM EDT documented as of this encounter Miscellaneous Notes * Telephone Encounter - Ade Orozco M.A. - 02/06/2021 3:45 PM EDT rxs faxed * Telephone Encounter - Nilam De Paz - 02/06/2021 3:32 PM EDT Diane 12/22/20 Ov 07/12/21 Lab Results Component Value Date TSH 0.87 09/08/2020 Lab Results Component Value Date NA 139 11/17/2018 K 4.1 11/17/2018 CO2 23 11/17/2018 CL 109 11/17/2018 BUN 13 11/17/2018 CREAT 0.80 11/17/2018 GLU 87 11/17/2018 CA 9.4 11/17/2018 GFR > 60 11/17/2018 * Telephone Encounter - Jairon Ghotra - 02/06/2021 1:42 PM EDT Patient would like script to be: E-PRESCRIBED/FAXED TO PHARMACY WHEN WAS THE PATIENT'S LAST APPOINTMENT IN ADULT MEDICINE? 12/22/20 WHEN WAS THE LAST TIME THE PATIENT SAW THEIR PCP? 11/18/19 Does patient have an upcoming appointment? Yes 07/12/21 (THE MEDICATION REQUESTED IS ON THE MED LIST ABOVE) All of the medications requested were on the CURRENT MEDS list Did you check the Pharmacy information above?: YES Patient wants: 90 -day supply Is this a mail order prescription request ? NO If the refill is from a FAXED refill request what is the RX # listed on the fax? N/A Patients current insurance carrier is: Payor: BEN / Plan: PPO $0 [id number] / Product Type: PPO [id number] documented in this encounter Plan of Treatment Not on file documented as of this encounter Visit Diagnoses Not on filedocumented in this encounter Care Teams Preschool Teacher Assistant Relationship Specialty Start Date End Date Mayra Moctezuma MD [address] [place] [address] PCP - General 05/22/99 07/04/23 [facility], Pcp [address] [place] [address] PCP - General Internal Medicine 07/05/23 documented as of this encounter
--- OUTSIDE RECORDS SUMMARY | 2024-06-11 14:37 | XMS_ITS | Encounter Summary ---
Author Organization [facility] Address [address] [place] [address] Care Team Providers Care Resource Paraprofessional Name Role Phone Myara Moctezuma MD Primary Care Provider [phone] [facility], Pcp Primary Care Provider Unavailabl e Reason for Visit * Reason Onset Date Comments Prior Authorization 12/11/2019 Encounter Details Date Type Department Care Team Description 12/11/2019 Telephone Internal Medicine - [place] 175 [facility], [address] [place] [address] Jannet Briceño, POCKET SETTER LOCKSTITCH [address] [address] Prior Authorization Social History Tobacco Use Types Packs/Day Years [...] encounter Miscellaneous Notes * Telephone Encounter - Lilia Ly M.A. - 12/15/2019 9:06 AM EDT Symbicort brand is covered, please send new script [place] substitutions [place] [phone] Prior Auth pool Lilia Ly M.A. Regional Prior Authorizations Ext [id number] Fax: [phone] [place] p [phone] Prior Auth pool * Telephone Encounter - Miriam Preciado M.A. - 12/14/2019 2:19 PM EDT Please do the Prior Authorization for the Symbicort patient can't tolerate the fluticasone and Ludy Velasco has Fluticasone in it and causing horsening reaction to patient. If you need more information more information please call at [phone] ext [phone] * Telephone Encounter - Lilia Ly M.A. - 12/14/2019 10:20 AM EDT Pt is calling asking about budesonide, I sent msg on the covered alternatives. Please have staff advise pt it medication is to be changed. If neither alternative is appropriate I will need to know why so I can put on prior auth [place] [phone] Prior Auth pool Lilia Ly M.A. Regional Prior Authorizations Ext [id number] Fax: [phone] [place] p [phone] Prior Auth pool * Telephone Encounter - Ruth Cedeño - 12/14/2019 10:12 AM EDT Patient calling checking on status * Telephone Encounter - Lilia Ly M.A. - 12/11/2019 2:22 PM EDT Breo and advair are preferred [place] [phone] Prior Auth pool Lilia Ly M.A. Regional Prior Authorizations Ext [id number] Fax: [phone] [place] to p [phone] Prior Auth pool * Telephone Encounter - Sarika Wong - 12/11/2019 1:41 PM EDT Prior Authorization for Medication-do not complete and send this encounter unless you have the fax from the pharmacy. Is this a Cover My Meds request: [place] of Medication budesonide/form 80/4.5 MCG Dose of Medication na What is the RX # from the faxed refill? [id number] How does patient take this med? na What Pharmacy did the fax come from: [facility] [phone] Pharmacy fax #: [phone] [employer] Information from fax: What Prescription Plan does the patient have? na BIN/PCN if applicable: shanda Cardholder ID:na Person Code: na Relationship Code: shanda Help desk phone: shanda documented in this encounter Plan of Treatment Not on file documented as of this encounter Visit Diagnoses Diagnosis Mild persistent asthma without complication- Primary Unspecified asthma documented in this encounter Care Teams Resource Paraprofessional Relationship Specialty Start Date End Date Mayra Moctezuma MD [address] [place] [address] PCP - General 05/22/99 07/04/23 [facility], [address] [address] PCP - General Internal Medicine 07/05/23 documented as of this encounter
--- OUTSIDE RECORDS SUMMARY | 2024-06-11 14:37 | XMS_ITS | Data Portability ---
Author Organization [place] - [facility], Allergy Address [address] [place] [address] Care Team Providers Care Program Project Analyst Name Role Phone BILLY NUNEZ Primary Care Provider [phone] Assessment Encounter Date Assessment Date Assessment LastModified by Organization Details LastModified Time 10/09/2023 10/09/2023 Patient has evidence of thrush on soft palate and larynx. She has recently been modifying her inhaler regimen to treat her COPD. She has a prescription of nystatin at home she is working with currently. Her vocal cord paralysis and vocal changes appears to have improved with injection thyroplasty. She understands the injection material will resorb over time. In the future if she has persistent progressive vocal changes she is encouraged to follow-up as a repeat injection may be beneficial. Of course there are other causes of vocal changes including her COPD, thrush, laryngitis that would be evaluated at that time [email or web address] Not available 10/09/2023 09:35:31 02/17/2024 02/17/2024 Patient has evidence of thrush on soft palate and larynx. She has recently been modifying her inhaler regimen to treat her COPD. She has a prescription of nystatin at home she is working with currently. Submitted refills for nystatin Her vocal cord paralysis and vocal changes appears to be multifactorial with the resorption of the injectable in left cord and the thrush. Her maximum phonation time today was 6 sec. offered a referral to speech pathology as there may be a benefit in voice therapy to improve her vocal function. If she is unable to achieve adequate improvement, she understands to follow-up and we will discuss repeat injection thyroplasty left side [email or web address] Not available 02/17/2024 14:27:45 Plan of Treatment Reminders Order Date Submit Date Provider Last Modified By Organization Details Last Modified Time Details Appointments None recorded. Lab None recorded. Referral speech language pathologi st referral - 03/19 @ 8:30 2023 024 [email or web address] [facility], [address] [place], [address], 08:59:12 Procedures None recorded. Surgeries None recorded. Imaging None recorded. Medication Orders nystatin 100,000 unit/mL oral suspensio n 2023 024 [id number], [address], [place], [place], [phone], 14:25:22 Patient TargetsNo targets recorded. Patient InstructionsNo instructions recorded. Reason for Referral Speech Language Pathologist Referral for Paralysis of larynx 03/19 @ 8:30 Referring Physician: Heath Hallman, Otolaryngology, Encounter Date: 02/17/2024 Results Created Date Observation Date Name Description Value Unit Range Abnormal Flag Note LastModifiedBy Organization Detail LastModifiedTime 12/12/19 24 02/05/2020 imagi ng/di agnos tic resul t No observ ation record ed. [email or web address] Not Available 03:26:53 12/12/19 24 02/05/2023 imagi ng/di agnos tic resul t No observ ation record ed. [email or web address] Not Available 03:27:00 12/12/19 24 03/13/2023 imagi ng/di agnos tic resul t No observ ation record ed. [email or web address] Not Available 03:27:21 Result Notes None recorded. Problems Name Problem SNOMED Code Status Onset Date Resolution Date Notes Provider Name and Address Organization Details Recorded Time Stomatitis 95825205 Active 2022 Oral thrush; Note: Date Diagnosed: 01/22/2023 2:50 PM (B37.0) Not Available [facility] 02:52:13 Candidiasi s of mouth 89262932 Active 2022 Oral thrush; Note: Date Diagnosed: 01/22/2023 2:50 PM (B37.0) Note: Date Diagnosed: 01/22/2023 2:50 PM (B37.0) HEATH HALLMAN MD [address] [place] [address],[place] [address], [place], [address] , [facility] - [facility] 4 09:34:06 Dysphagia 27255562 Active 2019 Dysphagia, unspecifie d; Note: Date Diagnosed: 12/30/2019 10:30 AM (R13.10) Not Available [facility] 4 02:52:16 Paralysis of larynx 24907176 Active 2022 Paralysis of vocal cords and larynx, unspecifie d; Note: Date Diagnosed: 01/22/2023 2:48 PM (J38.00) Note: Date Diagnosed: 01/22/2023 2:48 PM (J38.00) HEATH HALLMAN MD [address] [place] [address], [place], [address] , [facility] - [facility] 4 09:34:06 Dysphonia 43412023 Active 2019 Hoarseness ; Note: Date Diagnosed: 12/30/2019 10:30 AM (R49.0) Not Available [facility] 4 02:52:15 Problem Notes None recorded. Procedures Surgical History Date Name Laterality Status Provider Name and Address Organization Details Recorded Time 02/17/2024 FOL_DP completed HEATH HALLMAN MD [address] [place] [address], [place], [address], [facility] - [facility] 02/14/2024 14:44:22 10/09/2023 FOL_DP completed HEATH HALLMAN MD [address] [place] [address],[address], [address], [facility] - [facility] 10/09/2023 09:33:16 Imaging Results Imaging Date Name Status LastModified by [facility] Details LastModified Time 02/05/2020 imaging/diag nostic result completed Information not available 12/12/2023 03:26:53 02/05/2023 imaging/diag nostic result completed Information not available 12/12/2023 03:27:00 03/13/2023 imaging/diag nostic result completed Information not available 12/12/2023 03:27:21 Procedure Notes None recorded. Medical Equipment None Reported. Medications Name Sig Start Date Stop Date Status Note LastModified by Organization Details LastModified Time amoxicilli n 500 mg capsule TAKE 4 CAPSULES BY MOUTH 1 HOUR BEFORE DENTAL PROCEDURE active Not Available Not Available No t Available nystatin 100,000 unit/mL oral suspension SHAKE BOTTLE AND SWISH AND SPIT 5 MLS FOUR TIMES DAILY FOR 2 TO 4 WEEKS active Not Available Not Available No t Available prednisone 10 mg tablet active Not Available Not Available Not Available doxycyclin e hyclate 100 mg capsule TAKE 1 CAPSULE BY MOUTH TWICE DAILY FOR 10 DAYS active Not Available Not Available No t Available azithromyc in 250 mg tablet TAKE 2 TABLETS BY MOUTH TODAY THEN 1 TABLET BY MOUTH DAILY OR DAYS 2-5 active Not Available Not Available No t Available Synthroid 150 mcg tablet active Not Available Not Available Not Available Synthroid 125 mcg tablet active Not Available Not Available Not Available prednisone 20 mg tablet TAKE 2 TABLETS BY MOUTH DAILY FOR 5 DAYS THEN 1 TABLET DAILY FOR 5 DAYS active Not Available Not Available No t Available sertraline 100 mg tablet active Not Available Not Available Not Available amlodipine 2.5 mg tablet active Not Available Not Available Not Available amlodipine 5 mg tablet active Not Available Not Available Not Available omeprazole 40 mg capsule,de layed release active Not Available Not Available Not Available doxycyclin e monohydrat e 100 mg tablet TAKE 1 TABLET BY MOUTH TWICE DAILY FOR 14 DAYS active Not Available Not Available No t Available benzonatat e 100 mg capsule TAKE 1 CAPSULE BY MOUTH THREE TIMES DAILY FOR 5 DAYS FOR COUGH active Not Available Not Available No t Available cephalexin 500 mg capsule TAKE 1 CAPSULE BY MOUTH FOUR TIMES DAILY active Not Available Not Available No t Available gabapentin 300 mg capsule TAKE 1 CAPSULE BY MOUTH EVERY DAY AT BEDTIME active Not Available Not Available No t Available omeprazole 20 mg capsule,de layed release active Not Available Not Available Not Available budesonide 0.5 mg/2 mL suspension for nebulizati on active Not Available Not Available Not Available cephalexin 500 mg tablet TAKE 1 TABLET BY MOUTH EVERY 6 HOURS active Not Available Not Available No t Available montelukas t 10 mg tablet active Not Available Not Available Not Available Flovent HFA 110 mcg/actuat ion aerosol inhaler 2019 active Medicatio n ID: [id number] Du ration Value: 30 Brand Name: Flovent HFA Send Method: E-Prescri bed Subs Allowed: subs OK Specia l Instructi on: INHALE 1 PUFF PO BID Medic ationGene ricName: Flovent HFA Not Available Not Available Not Available pregabalin 50 mg capsule TAKE 1 CAPSULE BY MOUTH EVERY NIGHT active Not Available Not Available No t Available Fish Oil active Medicatio n ID: [id number] Br and Name: fish oil Send Method: E-Prescri bed Subs Allowed: subs OK Medica tionGener icName: fish oil Not Available Not Available Not Available multivitam in active Medicatio n ID: [id number] Br and Name: multivita min Send Method: E-Prescri bed Subs Allowed: subs OK Medica tionGener icName: multivita min Not Available Not Available Not Available ProAir HFA 90 mcg/actuat ion aerosol inhaler 2019 active Medicatio n ID: [id number] Du ration Value: 25 Brand Name: ProAir HFA Send Method: E-Prescri bed Subs Allowed: subs OK Specia l Instructi on: INL 2 PFS PO TID FOR 7 DAYS PRF DIFFICULT BREATHING Medicati onGeneric Name: ProAir HFA Not Available Not Available Not Available Advair HFA 115 mcg-21 mcg/actuat ion aerosol inhaler active Not Available Not Available Not Available Advair HFA 230 mcg-21 mcg/actuat ion aerosol inhaler active Not Available Not Available Not Available GaviLyte-G 236 gram-22.74 gram-6.74 gram-5.86 gram oral solution FOLLOW DIRECTION S GIVEN BY DOCTOR active Not Available Not Available No t Available Trelegy Ellipta 200 mcg-62.5 mcg-25 mcg powder for inhalation INHALE 1 PUFF BY MOUTH DAILY active Not Available Not Available No t Available Vitals Date Recorded Body height Body mass index (BMI) Body weight Provider Name and Address Organization Details Last Updated DateTime 10/09/2023 160.02 cm 46.1 kg/m2 301151.02 g Shania Valenzuela [place] - [facility] 10/09/2023 09:24:33 Date Recorded Body height Body mass index (BMI) Body weight Provider Name and Address Organization Details Last Updated DateTime 02/17/2024 160.02 cm 46.1 kg/m2 412939.02 g Shania Valenzuela [place] - [facility] 02/17/2024 14:03:46 Social History None recorded. Functional Status None recorded. Mental Status None recorded. Family History Nothing Reported. Medical History No medical history recorded. Gynecological HistoryNo gynecological history recorded. Obstetrics History GPAL:G 0 P 0 0 0 0 Past Encounters Encounter ID Performer Location Encounter Start Date Encounter Closed Date Diagnosis/Indication Diagnosis SNOMED-CT Code Diagnosis ICD10 Code Diagnosis Note [id number] HEATH HALLMAN MD [facility] [address] [address] 10/09/2023 09:13:13 10/09/2023 09:34:23 Candidiasis of mouth 94601313 B37.0 Paralysis of larynx 8992 7005 J38.00 [id number] HEATH HALLMAN MD [facility] [address] [address] 02/17/2024 13:47:14 02/17/2024 14:29:09 Candidiasis of mouth 47348551 B37.0 Paralysis of larynx 8992 7005 J38.00 Health Concerns Section Related Observation LastModified by Organization Detai ls LastModified Time None Recorded Concern Status LastModified by Organization Details LastModified Time None Recorded Advance Directives Directive None Recorded Payers Encounter Date Sequence Insurance Name Policy Number Policy Arevalo Covered Member ID Arevalo Member ID Guarantor Name 10/09/2023 1 [facility] [id number] Diana [employer] [id number] Diana [employer] 02/17/2024 1 [facility] [id number] Diana [employer] [id number] Diana Frontier Notes Date Note Type Note Provider Name and Address Organization Details Recorded Time 10/09/2023 text/html 09/09/2023 [facility], L eft VC injection 0.8ml of prolaryn plusstrobe with Ainsley Anderson 02/05/23 with findings of LVF stiff, glottic gap, small vocal nodules, thrushCT neck Rayus 02/06/23, flaccidity of right VC, no masses, prominent but normal LN bilateral level IIa, b reports voice is much improved since procedure HEATH HALLMAN MD [address] [facility],[place] [address], [place], [address], [place] - [facility] 10/09/2023 09:35:51 02/17/2024 text/html Left VC paralysisfeels voice is rising in pitch and gradual more hoarsedid not followup with voice therapy as her outcome from injection was gooduses nystatin wash TID routine for her mutliple inhaler 09/09/2023 [facility], Left VC injection 0.8ml of prolaryn plus strobe with Ainsley Anderson 02/05/23 with findings of LVF stiff, glottic gap, small vocal nodules, thrush 02/06/23 CT neck Rayusflaccidity of right VC, no masses, prominent but normal LN bilateral level IIa, b HEATH HALLMAN MD [address] [facility], [place], [address], [place] - [facility] 02/17/2024 14:28:31 OBGyn Episode No OBEpisode recorded.
--- OUTSIDE RECORDS SUMMARY | 2024-06-11 14:37 | XMS_ITS | Encounter Summary ---
Author Organization [facility] Address [address] [place] [address] Care Team Providers Care Cooker Sulfite Name Role Phone Mayra Moctezuma MD Primary Care Provider [phone] [facility], Pcp [facility] Encounter Details Date Type Department Care Team Description 08/01/2018 Release of Information Medical Records [address] [place] [id number] Abstract, Provider Social History Tobacco Use Types Packs/Day Years [...] on filedocumented in this encounter Care Teams Cooker Sulfite Relationship Specialty Start Date End Date Mayra Moctezuma MD [address] [place] [address] PCP - General 05/22/99 07/04/23 [facility], Pcp [address] [place] [address] PCP - General Internal Medicine 07/05/23 documented as of this encounter
--- OUTSIDE RECORDS SUMMARY | 2024-06-11 14:37 | XMS_ITS | Encounter Summary ---
Author Organization [facility] Address [address] [place] [address] Care Team Providers Care Washerette Machine Operator Name Role Phone Mayra Moctezuma MD Primary Care Provider [phone] [facility], Pcp Primary Care Provider Unavailabl e Reason for Visit * Reason Comments E-prescribe Rx Request Encounter Details Date Type Department Care Team Description 03/22/2021 Refill Pulmonology - [place] [address] [phone] Jannet Briceño, DEIRDRE [address] [address] E-prescribe Rx Request Social History [...] Telephone Encounter - Miriam Preciado M.A. - 03/24/2021 2:42 PM EST Letter sent to patient to call back the office to schedule an appointment with Jannet documented in this encounter Plan of Treatment Not on file documented as of this encounter Visit Diagnoses Not on filedocumented in this encounter Care Teams Washerette Machine Operator Relationship Specialty Start Date End Date Mayra Moctezuma MD [address] [place] [address] PCP - General 05/22/99 07/04/23 [facility], Pcp [address] [place] [address] PCP - General Internal Medicine 07/05/23 documented as of this encounter
--- OUTSIDE RECORDS SUMMARY | 2024-06-11 14:37 | XMS_ITS | Encounter Summary ---
Author Organization [facility] Address [address] [place] [address] Care Team Providers Care Spragger Name Role Phone Mayra Moctezuma MD Primary Care Provider [phone] [facility], Pcp Primary Care Provider Unavailabl e Reason for Visit * Reason Comments E-prescribe Rx Request Encounter Details Date Type Department Care Team Description 10/28/2018 Refill OBGYN - [place] [address] [place] [address] Shamika Aponte MD [address] [place] [address] E-prescribe Rx Request Social History Tobacco Use [...] encounter Miscellaneous Notes * Telephone Encounter - Roxanna De Paz - 11/10/2018 3:00 PM EDT Please review in provider absence patient has an upcoming appt on 01/28/2019. tlv * Telephone Encounter - Betty Simons - 11/10/2018 2:35 PM EDT Pt scheduled for 01/28/19 * Telephone Encounter - Harikaseble Almanzarcathryn - 10/28/2018 8:43 AM EDT WHEN WAS THE PATIENTS LAST ANNUAL VOLLEYBALL COMMENTATOR EXAM? 08/06/17 Does patient have an upcoming appointment? No lmom (THE MEDICATION REQUESTED IS ON THE MED LIST ABOVE) Did you check the Pharmacy information above?: YES Indicate how soon the patient needs the script: CHANELL Patient would like script to be: E-PRESCRIBED/FAXED TO PHARMACY Is the doctor here today?: NO Can the message wait until the doctor returns?: NO Has the patient been told that the prescription will not be filled until the end of the day? NO Payor: BEN / Plan: PPO $0 DEX [id number] / Product Type: PPO [id number] documented in this encounter Plan of Treatment Not on file documented as of this encounter Visit Diagnoses Not on filedocumented in this encounter Care Teams Spragger Relationship Specialty Start Date End Date Mayra Moctezuma MD [address] [place] [id number] PCP - General 05/22/99 07/04/23 [facility], [address] [address] PCP - General Internal Medicine 07/05/23 documented as of this encounter
== END 2024-06-11 14:13 | disposition home or self-care (01) ==
PROVIDERS: PCP Nurse Practitioner; Visit Provider Hospitalist
DX: J45.50 Severe persistent asthma, uncomplicated (principal); T78.40XA Allergy, unspecified, initial encounter; J38.01 Paralysis of vocal cords and larynx, unilateral; K44.9 Diaphragmatic hernia without obstruction or gangrene; R60.0 Localized edema; J44.9 Chronic obstructive pulmonary disease, unspecified
CPT/HCPCS: 99214

== ENCOUNTER 2024-12-07 13:41 | Outpatient (AMB) | payer OTHER, SELFPAY ==
--- NOTE | 2024-12-07 13:46 | MHC.OFFVIS ---
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 She is having issues with hoarseness laryngitis. 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 She has had episodes of asthma that had been frequent. Requiring multiple courses of prednisone antibiotics. She will usually go to an urgent care. The last time she did go to the [facility] ED. That was back in May. I did look at her imaging studies. The patient had a chest x-ray without any acute disease. The patient has never had allergy testing. She does have a cat a dog and a bird. On examination she does have significant wheezing. She had been taking Advair HFA for many years. Although with her vocal cord dysfunction not sure if the inhalers are actually helping her to the fullest degree. She has been also using allergy medication. Will go ahead and request allergy testing at this time. Will start her on budesonide via nebulizer to try to improve her significant wheezing and avoid prednisone. The patient also may have a component of microaspiration specially with a vocal cord paralysis. She does have a hiatal hernia. She did have a barium swallow without any significant reflux although explained to her that she likely does because of her hiatal hernia. We did talk about the importance of sleeping elevated in the reflux diet. She will make some lifestyle changes this time. In addition to that will start her on a promotility agent azithromycin for least a month and see this provides some relief as well. The patient returns 6-8 weeks after her allergy testing. Will hold off on spirometry specially with a vocal cord paralysis. The patient will be following up with ENT soon and she is going to have a Botox injection. 09/26/2023 the patient is here for a pulmonary follow-up visit. The patient is doing a little better. She did start budesonide has continued the Advair. Still having wheezing on a regular basis still requiring her rescue inhaler regularly. She also completed the antibiotics. She is monitoring closely for any reflux disease and following reflux diet. Overall she is doing a little better. We did look at her blood work demonstrating significant eosinophilia. 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 Based on the fact that she is maximized on respiratory therapy and requiring frequent prednisone and still having wheezing requiring her rescue inhaler on a daily basis consistent with severe persistent asthma the patient be a great candidate for interleukin 5 inhibitors. I believe Fasenra be a very good option for her. Will be requested from her insurance. This will minimize her steroid use and therefore decrease her risk of future adverse effects from the steroids and improve her overall health and quality of life. So will go ahead and maximize her respiratory therapy and request biologics at this time. She does have some lower extremity edema as well. The patient does not taking additional salt. She is very careful with that. She does have an elevated blood pressure. She does have snoring and does have an elevated [place] score of 10/24. We did discuss considering sleep study. Will discuss it further once her respiratory symptoms are improved. 01/17/2024 the patient is here for a pulmonary follow-up visit. The patient has been very sick with her asthma. Has had multiple exacerbations already requiring prednisone. She does have severe persistent asthma with frequent exacerbations. She does have an elevated eosinophil count and we did request biologic therapy, Fasenra. However was denied by insurance for an unclear reason. Today she is having significant wheezing on examination. She will need additional steroids and receive a Solu-Medrol IM x1. For additional information for insurance purposes we did perform a spirometry at the bedside demonstrating severe obstruction consistent with her severe persistent asthma which is uncontrolled. Patient will need additional prednisone will continue her maximize respiratory therapy as she is so doing with good compliance. Will go ahead and resubmit to the insurance company the need for biologic therapy. I do believe Fasenra be a very good option for her. Although Nucala would also be a good alternative. Will work with insurance company in order to get the patient's medications available in order for her to improve her overall symptoms. 02/06/2024 the patient is here for a pulmonary follow-up visit. She continues have significant chronic bronchitis. Significant obstructive airway disease. She continues on the Trelegy in addition to budesonide nebs. She is having hoarseness. She has an ENT evaluation. I bet is likely related to her respiratory medications and vocal cord paralysis. The patient is also requiring frequent doses of prednisone for tapers. Will go ahead and prescribe her Daliresp with the help of decreasing her exacerbations and prednisone needs. The patient also benefit from send biologic therapy. Fasenra will be a very good option for her since her eosinophils are elevated. She has yet to hear back from her insurance company hopefully we can get approval and reasonable co-pay for her for to start her biologic shots. Imaging study she had an x-ray back in 12/10/2023 which I personally reviewed demonstrating no acute disease. 04/20/2024 the patient is here for pulmonary sick visit. She is having hard time with the breathing. She did finish a course of prednisone helpful little bit but then when she weans off she starts having hard time with the breathing. She has severe persistent asthma. The patient was tried to be placed on Fasenra but is extremely expensive for her. Therefore she continues on the Trelegy in addition to the budesonide nebs. She does not like to go on prednisone that it does help her breathing some. The patient also has chronic bronchitis and COPD from the ongoing symptoms. The patient was prescribed Daliresp but it was again denied by her insurance. Will going to submitted again specially since she has significant chronic bronchitis and significant needs for prednisone. The patient has significant wheezing today she also has some chest congestion. Will go ahead and start her another course of prednisone in addition to azithromycin. The hope is to be able to start her on biologic therapy I do believe the Dupixent will be a very good option for her. In the meantime will going to have her start the Daliresp and azithromycin. The patient will return 2 months. If she is not better by then will consider additional imaging studies and consider bronchoscopy. 06/11/2024 the patient is here for a pulmonary follow-up visit. She is feeling better. She continues to be on small dose of prednisone though. She continues on a respiratory therapy. She did start the budesonide and also started the Daliresp. She does tolerate the Daliresp well. She also was looking to starting Dupixent. She is awaiting see if the medication be covered as far as the copayments. In the meantime she continues to do well on the current therapy. She still has the issue with her paralyzed vocal cord. She is going to need another Botox injections in. She is going to follow-up with ENT. Otherwise patient is without any other complaints. Will follow-up in 6 months. If she has any issues prior to that she will call for an earlier assessment. 12/07/2024 the patient is here for a pulmonary follow-up visit. She continues to struggle because she is still having significant wheezing. She has not been able to get off the prednisone. Actually she did come off for the last few days and she has been having worsening wheezing and significant rash. She continues on a very aggressive respiratory regimen with minimal improvement. We were waiting for her to get Dupixent although she needed to be completed in some paperwork. We did completed today and the patient was approved for the Dupixent. Therefore will start that as soon as possible. In the meantime she will need to stay on some prednisone as we are tapering down slowly in view of her worsening wheezing. I already sent the prescription over to the pharmacy hopefully she can start the CHANELL. Once the patient is stabilizing the biologic therapy we can address her symptoms and try to deescalate some her respiratory regimen. If she continues to be congested we can also consider bronchoscopy. Will follow-up in 2-3 months. [facility] Medical History (Updated 06/11/24 @ 20:52 by Josh Infante MD) COPD (chronic obstructive pulmonary disease) Lower extremity edema Asthma-COPD overlap syndrome Hiatal hernia Paralysis of right vocal cord Asthma Allergy Social History Patient Tobacco Use Status: Former Tobacco user Tobacco use type: Cigarette Years Smoked: 10 years, quit 20+ yrs ago Second Hand Smoke Exposure: Yes Review of Systems Const Denies fever(s) Eyes Reports no additional complaints ENT Reports nasal congestion Card Denies chest pain and Reports dyspnea on exertion Resp Reports cough, Reports dyspnea on exertion and Reports wheezing GI Reports heartburn Musc Reports no additional complaints Skin/Breast Reports rash [place]/Lymph Denies lymphadenopathy Aller/Immun Reports wheezing Physical Exam Vital Signs: Last Vital Signs Pulse 87 12/07/24 13:47 BP 160/84 H 12/07/24 13:47 Pulse Ox 95 12/07/24 13:47 Oxygen Delivery Method Room Air 12/07/24 13:47 BMI result Body Mass Index 42.8 Const General: comfortable HEENT Head: Yes normocephalic Chest Chest palpation & inspection: normal inspection of the chest Resp Effort & Inspection: normal respiratory effort and prolonged expiratory phase Auscultation: wheezes and diminished lung sounds Cardio Heart sounds: S1 normal heart sound present and S2 normal heart sound present GI Palpation (GI): Soft to palpation Skin General skin exam: no rashes or lesions noted Extrem General: No cyanosis and Yes edema Assessment & Plan Assessment & Plan (1) Asthma: Code(s): J45.909 - Unspecified asthma, uncomplicated Category: Medical Qualifiers: Asthma complication type: uncomplicated Asthma persistence: persistent Asthma severity: severe Qualified Code(s): J45.50 - Severe persistent asthma, uncomplicated (2) Allergy: Code(s): T78.40XA - Allergy, unspecified, initial encounter Category: Medical Qualifiers: Encounter type: initial encounter Qualified Code(s): T78.40XA - Allergy, unspecified, initial encounter (3) Paralysis of right vocal cord: Code(s): J38.01 - Paralysis of vocal cords and larynx, unilateral Category: Medical (4) Hiatal hernia: Code(s): K44.9 - Diaphragmatic hernia without obstruction or gangrene Category: Medical (5) Lower extremity edema: Code(s): R60.0 - Localized edema Category: Medical (6) COPD (chronic obstructive pulmonary disease): Code(s): J44.9 - Chronic obstructive pulmonary disease, unspecified Category: Medical Qualifiers: COPD type: unspecified COPD Qualified Code(s): J44.9 - Chronic obstructive pulmonary disease, unspecified Plan continue Trelegy 200 continue budesonide via neb ELVA as needed Start Dupixent biologic therapy to treat her severe eosinophilic asthma Daliresp (Roflumilast) 500mcg daily continue with Prednisone with slow taper, will wean down to 5mg every other day-->off nebulizer Low Na diet F/U 2-3 months Medications: New prednisone 10 mg (2 x 5 mg) PO DAILY 60 tabs 3RF 30 days dupilumab (Dupixent) loading dose: 600mg SC x 1, then 300mg SC every 2 weeks 4 mL 11RF 4 weeks Coding Level of Care Code Est Pt Level 4 (95279) Complex EM visit Add On G2211 Diagnoses Severe persistent asthma without complication J45.50 Asthma complication type: uncomplicated Asthma persistence: persistent Asthma severity: severe Allergy, initial encounter T78.40XA Encounter type: initial encounter Paralysis of right vocal cord J38.01 Hiatal hernia K44.9 Lower extremity edema R60.0 Chronic obstructive pulmonary disease, unspecified COPD type J44.9 COPD type: unspecified COPD Time Spent (min) 17
[2024-12-07 13:47] VITALS: BP 160/84; PULSE 87; O2SAT 95; BMI 42.8
--- OUTSIDE RECORDS SUMMARY | 2024-12-07 14:34 | XMS_ITS ---
Author Name [facility] Organization Unknown History of Medication Use Medication Directions Dispensed Refills Start Date End Date Stat amoxicillin 500 mg capsule Take 4 tablets one hour prior to dental procedure 11/09/2022 4 active acetaminophen 500 mg tablet TAKE 2 TABLET BY MOUTH EVERY 8 HOURS 4 completed benzonatate 100 mg capsule TAKE 1 CAPSULE BY MOUTH THREE TIMES DAILY FOR 5 DAYS FOR COUGH active cephalexin 500 mg tablet TAKE 1 TABLET BY MOUTH EVERY 6 HOURS active doxycycline hyclate 100 mg capsule TAKE 1 CAPSULE BY MOUTH TWICE DAILY FOR 10 DAYS active doxycycline monohydrate 100 mg tablet TAKE 1 TABLET BY MOUTH TWICE DAILY active GaviLyte-G 236 gram-22.74 gram-6.74 gram-5.86 gram oral solution FOLLOW DIRECTIONS GIVEN BY DOCTOR active meloxicam 15 mg tablet TAKE 1 TABLET BY MOUTH EVERY DAY FOR 15 DAYS active montelukast 10 mg tablet active nystatin 100,000 unit/mL oral suspension SHAKE BOTTLE AND SWISH AND SPIT 5 ML FOUR TIMES DAILY FOR 2 TO 4 WEEKS active ondansetron HCl 8 mg tablet TAKE 1 TABLET BY MOUTH EVERY 8 HOURS NEEDED FOR NAUSEA active prednisone 20 mg tablet TAKE 2 TABLETS BY MOUTH DAILY FOR 5 DAYS active senna s 8.6-50mg tablets TAKE 1 TABLET BY MOUTH 2 TIMES A DAY FOR 30 DAYS. FOR CONSTIPATION WHILE TAKING OPIOD MEDICATIONS. active Serevent Diskus 50 mcg/dose powder for inhalation active sertraline 100 mg tablet active Stimulant Laxative Plus 8.6 mg-50 mg tablet TAKE 1 TABLET BY MOUTH TWICE DAILY active Problems Problem Status Onset Date Problem Type Date of Resoluti on Source History of left total knee replacement active 2023-06-13 [facility]Act [facility] Osteoarthritis of right hip joint active 2022-07-13 ProblemAct [facility] History of total replacement of right hip joint active 2023-06-13 ProblemAct [facility] Encounters Encounter Type Encounter Reason Primary Diagnosis Location Date Ambulatory [facility] [place] 07/03/2023 Ambulatory [facility] [place] 06/13/2023 Ambulatory [facility] [place] 11/06/2022 Ambulatory [facility] [place] 11/06/2022 Ambulatory [facility] [place] 08/07/2022 Ambulatory [facility] [place] 08/06/2022 Care Team Organization Name Specialty Phone Email Start Date End Da te [facility] Bibiana Chavira Primary [facility] 06/27/202211/20 [facility] ELIAS BRASHER Primary Care 03/22/2022 12/09/[address] [facility] Elias Brasher Primary Care 02/27/2022
--- OUTSIDE RECORDS SUMMARY | 2024-12-07 14:34 | XMS_ITS | Clinical Summary ---
Author Organization [facility] Address [address] [place] [address] Care Team Providers Care Parachute Panel Joiner Name Role Phone Mayra Moctezuma MD Primary Care Provider [phone] Allergies No known active allergies Medications Medication Sig Dispensed Refills Start Date End Date Status sertraline (ZOLOFT) 100 MG tablet 0 06/17/2018 Active [place]-3 Fatty Acids (FISH OIL) 875 MG CAPS [...] 87 07/05/2022 3:14 PM EDT Temperature 36.1 C (97 F) 07/05/2022 3:14 PM EDT Respiratory Rate 18 [...] o f 2) 07/08/2023 Influenza Vaccine (#1) 2024 DTap / Tdap / Td (3 - Td or Tdap) 05/06/2029 05/06/2019, 06/02/2009, 07/22/1999 Pneumococcal Vaccine Aged Out No long er eligible based on patient's age to complete this topic RSV Ped < 20 months Aged Out No longe r eligible based on patient's age to complete this topic Care Teams Parachute Panel Joiner Relationship Specialty Start Date End Date Mayra Moctezuma MD PCP - General Internal Medicine 07/25/18
== END 2024-12-07 14:16 | disposition home or self-care (01) ==
LOC: HO.HPS 13:42
PROVIDERS: PCP Nurse Practitioner; Visit Provider Hospitalist
DX: J45.50 Severe persistent asthma, uncomplicated (principal); T78.40XA Allergy, unspecified, initial encounter; J38.01 Paralysis of vocal cords and larynx, unilateral; K44.9 Diaphragmatic hernia without obstruction or gangrene; R60.0 Localized edema; J44.9 Chronic obstructive pulmonary disease, unspecified
CPT/HCPCS: 99214

== ENCOUNTER 2024-12-08 11:49 | Outpatient (AMB) | payer OTHER, SELFPAY ==
--- OUTSIDE RECORDS SUMMARY | 2024-12-08 13:20 | XMS_ITS | Clinical Summary ---
Author Organization [facility] Address [address] [place] [address] Care Team Providers Care Seaport Planning Manager Name Role Phone Mayra Moctezuma MD Primary Care Provider [phone] Allergies No known active allergies Medications Medication Sig Dispensed Refills Start Date End Date Status sertraline (ZOLOFT) 100 MG tablet 0 06/17/2018 Active [place]-3 Fatty Acids (FISH OIL) 875 MG CAPS [...] age to complete this topic Care Teams Seaport Planning Manager Relationship Specialty Start Date End Date Mayra Moctezuma MD PCP - General Internal Medicine 07/25/18
--- NOTE | 2024-12-08 13:51 | A.OFFVIS_ITS ---
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: No Allergies No Known Allergies Allergy (Verified 12/08/24 13:51) Medication List - Last Reconciled 12/08/24 by Erin Pelayo LPN albuterol sulfate 90 mcg/actuation 2 puffs inhalation Q4-6H PRN amlodipine 5 mg PO DAILY azithromycin 250 mg PO 3XW 28 days budesonide 0.5 mg (2 mL) inhalation QAM dupilumab (Dupixent) loading dose: 600mg SC x 1, then 300mg SC every 2 weeks 4 weeks ijodmxarmju-mcumxnuec-joucffcb 200-62.5-25 mcg (Trelegy Ellipta) 1 inh inhalation DAILY 90 days levothyroxine (Synthroid) 150 mcg PO DAILY montelukast 10 mg PO DAILY nebulizers As directed omeprazole magnesium (Prilosec OTC) 20 mg PO DAILY prednisone 20 mg (2 x 10 mg) PO DAILY 30 days prednisone 10 mg (2 x 5 mg) PO DAILY 30 days roflumilast (Daliresp) 500 mcg PO DAILY 30 days sertraline 100 mg PO DAILY HPI Comments Details: Diana? is here for a Dupixent teach she was educated on hand washing, injection preparation, administration, and disposal.?Diana was able to return demonstrate proper technique for hand washing, injection preparation, adm inistration and disposal of needle and states she has no questions at this time. Medication Dupixent 300mg/2mL pen-injector (patient?s own meds) Loading dose of 600mg given by the patient in 2 SQ injections; injection #1 R thigh;? injection #2 L thigh? Lot# [id number] expires 11/19/2025. Patient aware her next injection is in 15 days. Nurse visit only.? [facility] Medical History (Updated 06/11/24 @ 20:52 by Josh Infante MD) COPD (chronic obstructive pulmonary disease) Lower extremity edema Asthma-COPD overlap syndrome Hiatal hernia Paralysis of right vocal cord Asthma Allergy Social History Patient Tobacco Use Status: Former Tobacco user Tobacco use type: Cigarette Years Smoked: 10 years, quit 20+ yrs ago Second Hand Smoke Exposure: Yes Assessment & Plan Assessment & Plan (1) Asthma: Code(s): J45.909 - Unspecified asthma, uncomplicated Category: Medical Qualifiers: Asthma complication type: uncomplicated Asthma persistence: persistent Asthma severity: severe Qualified Code(s): J45.50 - Severe persistent asthma, uncomplicated Plan: Dupixent teaching, loading dose adminsitered Coding Level of Care Code Established Pt Est Pt Level 1 (49179) Patient Type Established Diagnoses Severe persistent asthma without complication J45.50 Asthma complication type: uncomplicated Asthma persistence: persistent Asthma severity: severe Comment NURSE VISIT ONLY
== END 2024-12-08 12:32 | disposition home or self-care (01) ==
LOC: HO.HPS 11:50
PROVIDERS: PCP Nurse Practitioner; Visit Provider Hospitalist
DX: J45.50 Severe persistent asthma, uncomplicated (principal)
CPT/HCPCS: 99499

== ENCOUNTER 2025-03-22 12:44 | Outpatient (AMB) | payer OTHER, SELFPAY ==
[2025-03-22 12:49] VITALS: BP 130/72; PULSE 75; O2SAT 98; BMI 43.0
--- NOTE | 2025-03-22 12:49 | MHC.OFFVIS ---
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 She is having issues with hoarseness laryngitis. 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 She has had episodes of asthma that had been frequent. Requiring multiple courses of prednisone antibiotics. She will usually go to an urgent care. The last time she did go to the [facility] ED. That was back in May. I did look at her imaging studies. The patient had a chest x-ray without any acute disease. The patient has never had allergy testing. She does have a cat a dog and a bird. On examination she does have significant wheezing. She had been taking Advair HFA for many years. Although with her vocal cord dysfunction not sure if the inhalers are actually helping her to the fullest degree. She has been also using allergy medication. Will go ahead and request allergy testing at this time. Will start her on budesonide via nebulizer to try to improve her significant wheezing and avoid prednisone. The patient also may have a component of microaspiration specially with a vocal cord paralysis. She does have a hiatal hernia. She did have a barium swallow without any significant reflux although explained to her that she likely does because of her hiatal hernia. We did talk about the importance of sleeping elevated in the reflux diet. She will make some lifestyle changes this time. In addition to that will start her on a promotility agent azithromycin for least a month and see this provides some relief as well. The patient returns 6-8 weeks after her allergy testing. Will hold off on spirometry specially with a vocal cord paralysis. The patient will be following up with ENT soon and she is going to have a Botox injection. 09/26/2023 the patient is here for a pulmonary follow-up visit. The patient is doing a little better. She did start budesonide has continued the Advair. Still having wheezing on a regular basis still requiring her rescue inhaler regularly. She also completed the antibiotics. She is monitoring closely for any reflux disease and following reflux diet. Overall she is doing a little better. We did look at her blood work demonstrating significant eosinophilia. 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 Based on the fact that she is maximized on respiratory therapy and requiring frequent prednisone and still having wheezing requiring her rescue inhaler on a daily basis consistent with severe persistent asthma the patient be a great candidate for interleukin 5 inhibitors. I believe Fasenra be a very good option for her. Will be requested from her insurance. This will minimize her steroid use and therefore decrease her risk of future adverse effects from the steroids and improve her overall health and quality of life. So will go ahead and maximize her respiratory therapy and request biologics at this time. She does have some lower extremity edema as well. The patient does not taking additional salt. She is very careful with that. She does have an elevated blood pressure. She does have snoring and does have an elevated Graham score of 10/24. We did discuss considering sleep study. Will discuss it further once her respiratory symptoms are improved. 01/17/2024 the patient is here for a pulmonary follow-up visit. The patient has been very sick with her asthma. Has had multiple exacerbations already requiring prednisone. She does have severe persistent asthma with frequent exacerbations. She does have an elevated eosinophil count and we did request biologic therapy, Fasenra. However was denied by insurance for an unclear reason. Today she is having significant wheezing on examination. She will need additional steroids and receive a Solu-Medrol IM x1. For additional information for insurance purposes we did perform a spirometry at the bedside demonstrating severe obstruction consistent with her severe persistent asthma which is uncontrolled. Patient will need additional prednisone will continue her maximize respiratory therapy as she is so doing with good compliance. Will go ahead and resubmit to the insurance company the need for biologic therapy. I do believe Fasenra be a very good option for her. Although Nucala would also be a good alternative. Will work with insurance company in order to get the patient's medications available in order for her to improve her overall symptoms. 02/06/2024 the patient is here for a pulmonary follow-up visit. She continues have significant chronic bronchitis. Significant obstructive airway disease. She continues on the Trelegy in addition to budesonide nebs. She is having hoarseness. She has an ENT evaluation. I bet is likely related to her respiratory medications and vocal cord paralysis. The patient is also requiring frequent doses of prednisone for tapers. Will go ahead and prescribe her Daliresp with the help of decreasing her exacerbations and prednisone needs. The patient also benefit from send biologic therapy. Fasenra will be a very good option for her since her eosinophils are elevated. She has yet to hear back from her insurance company hopefully we can get approval and reasonable co-pay for her for to start her biologic shots. Imaging study she had an x-ray back in 12/10/2023 which I personally reviewed demonstrating no acute disease. 04/20/2024 the patient is here for pulmonary sick visit. She is having hard time with the breathing. She did finish a course of prednisone helpful little bit but then when she weans off she starts having hard time with the breathing. She has severe persistent asthma. The patient was tried to be placed on Fasenra but is extremely expensive for her. Therefore she continues on the Trelegy in addition to the budesonide nebs. She does not like to go on prednisone that it does help her breathing some. The patient also has chronic bronchitis and COPD from the ongoing symptoms. The patient was prescribed Daliresp but it was again denied by her insurance. Will going to submitted again specially since she has significant chronic bronchitis and significant needs for prednisone. The patient has significant wheezing today she also has some chest congestion. Will go ahead and start her another course of prednisone in addition to azithromycin. The hope is to be able to start her on biologic therapy I do believe the Dupixent will be a very good option for her. In the meantime will going to have her start the Daliresp and azithromycin. The patient will return 2 months. If she is not better by then will consider additional imaging studies and consider bronchoscopy. 06/11/2024 the patient is here for a pulmonary follow-up visit. She is feeling better. She continues to be on small dose of prednisone though. She continues on a respiratory therapy. She did start the budesonide and also started the Daliresp. She does tolerate the Daliresp well. She also was looking to starting Dupixent. She is awaiting see if the medication be covered as far as the copayments. In the meantime she continues to do well on the current therapy. She still has the issue with her paralyzed vocal cord. She is going to need another Botox injections in. She is going to follow-up with ENT. Otherwise patient is without any other complaints. Will follow-up in 6 months. If she has any issues prior to that she will call for an earlier assessment. 12/07/2024 the patient is here for a pulmonary follow-up visit. She continues to struggle because she is still having significant wheezing. She has not been able to get off the prednisone. Actually she did come off for the last few days and she has been having worsening wheezing and significant rash. She continues on a very aggressive respiratory regimen with minimal improvement. We were waiting for her to get Dupixent although she needed to be completed in some paperwork. We did completed today and the patient was approved for the Dupixent. Therefore will start that as soon as possible. In the meantime she will need to stay on some prednisone as we are tapering down slowly in view of her worsening wheezing. I already sent the prescription over to the pharmacy hopefully she can start the CHANELL. Once the patient is stabilizing the biologic therapy we can address her symptoms and try to deescalate some her respiratory regimen. If she continues to be congested we can also consider bronchoscopy. Will follow-up in 2-3 months. 03/22/2025 the patient is here for pulmonary follow-up visit. Overall the patient is doing a lot better. She is off all the prednisone. She started the Dupixent back in November. The Dupixent has been affecting beneficial. She continues on the Trelegy daily. She has not had to use her rescue inhaler or nebulized therapy with budesonide. She was able to wean off the prednisone completely. She also stopped the Daliresp. Overall she is very etc. with her respiratory improvement. Now she can start exercising and remove some of the additional weight that she accumulated with the breathing issue in the prednisone use. The patient is doing that the issue with the vocal cord dysfunction. But at this time is not bothering her much and she is not in any godfrey to go for any additional Botox injections. She is sleeping well denies any need for sleep study at this time. She is going to start working on exercise and working on lifestyle changes to improve her overall health. The patient will return in 6 months if any issues arise she can always call further recommendations. [facility] Medical History (Updated 06/11/24 @ 20:52 by Josh Infante MD) COPD (chronic obstructive pulmonary disease) Lower extremity edema Asthma-COPD overlap syndrome Hiatal hernia Paralysis of right vocal cord Asthma Allergy Social History Patient Tobacco Use Status: Former Tobacco user Tobacco use type: Cigarette Years Smoked: 10 years, quit 20+ yrs ago Second Hand Smoke Exposure: Yes Review of Systems Const Denies fever(s) Eyes Reports no additional complaints ENT Reports nasal congestion Card Denies chest pain and Reports dyspnea on exertion Resp Reports cough, Reports dyspnea on exertion and Reports wheezing GI Reports heartburn Musc Reports no additional complaints Skin/Breast Reports rash [place]/Lymph Denies lymphadenopathy Aller/Immun Reports wheezing Physical Exam Vital Signs: Last Vital Signs Pulse 75 03/22/25 12:49 BP 130/72 03/22/25 12:49 Pulse Ox 98 03/22/25 12:49 Oxygen Delivery Method Room Air 03/22/25 12:49 BMI result Body Mass Index 43.0 Const General: comfortable HEENT Head: Yes normocephalic Chest Chest palpation & inspection: normal inspection of the chest Resp Effort & Inspection: normal respiratory effort Auscultation: diminished lung sounds Cardio Heart sounds: S1 normal heart sound present and S2 normal heart sound present GI Palpation (GI): Soft to palpation Skin General skin exam: no rashes or lesions noted Extrem General: No cyanosis and Yes edema Assessment & Plan Assessment & Plan (1) Asthma: Code(s): J45.909 - Unspecified asthma, uncomplicated Category: Medical Qualifiers: Asthma complication type: uncomplicated Asthma persistence: persistent Asthma severity: severe Qualified Code(s): J45.50 - Severe persistent asthma, uncomplicated (2) Allergy: Code(s): T78.40XA - Allergy, unspecified, initial encounter Category: Medical Qualifiers: Encounter type: initial encounter Qualified Code(s): T78.40XA - Allergy, unspecified, initial encounter (3) Paralysis of right vocal cord: Code(s): J38.01 - Paralysis of vocal cords and larynx, unilateral Category: Medical (4) Hiatal hernia: Code(s): K44.9 - Diaphragmatic hernia without obstruction or gangrene Category: Medical (5) Lower extremity edema: Code(s): R60.0 - Localized edema Category: Medical (6) COPD (chronic obstructive pulmonary disease): Code(s): J44.9 - Chronic obstructive pulmonary disease, unspecified Category: Medical Qualifiers: COPD type: unspecified COPD Qualified Code(s): J44.9 - Chronic obstructive pulmonary disease, unspecified Plan continue Trelegy 200 stopped budesonide via neb ELVA as needed contnue Dupixent biologic therapy to treat her severe eosinophilic asthma stopped Daliresp (Roflumilast) 500mcg daily no prednisone nebulizer Low Na diet F/U 6-8 months Coding Level of Care Code Complex visit Add On G2211 Diagnoses Severe persistent asthma without complication J45.50 Asthma complication type: uncomplicated Asthma persistence: persistent Asthma severity: severe Allergy, initial encounter T78.40XA Encounter type: initial encounter Paralysis of right vocal cord J38.01 Hiatal hernia K44.9 Lower extremity edema R60.0 Chronic obstructive pulmonary disease, unspecified COPD type J44.9 COPD type: unspecified COPD Time Spent (min) 16
--- OUTSIDE RECORDS SUMMARY | 2025-03-22 16:21 | XMS_ITS | Data Portability ---
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 Surgeries None recorded. Imaging None recorded. Medication Orders nystatin 100,000 unit/mL oral suspensio n 2023 024 [id number], [address] , [place], [place], [phone], 14:25:22 Patient TargetsNo targets recorded. Patient InstructionsNo instructions recorded. Reason for Referral Speech Language Pathologist Referral for Paralysis of larynx 03/19 @ 8:30 Referring Physician: Heath Hallman, Otolaryngology, Encounter Date: 02/17/2024 Results Created Date Observation Date Name Description Value Unit Range Abnormal Flag Note LastModifiedBy Organization Detail LastModifiedTime 12/12/1902/05/2020 imagi ng/di agnos tic resul t No [...] Name and Address Organization Details Recorded Time Dysphagia 06561140 Active 2019 Dysphagia, unspecifie d; Note: Date Diagnosed: 12/30/2019 10:30 AM (R13.10) Not Available [facility] 4 02:52:16 Dysphonia 16157688 Active 2019 Hoarseness ; Note: Date Diagnosed: 12/30/2019 10:30 AM (R49.0) Not Available [facility] 4 02:52:15 Stomatitis 00589808 Active 2022 Oral thrush; Note: Date Diagnosed: 01/22/2023 2:50 PM (B37.0) Not Available [facility] 4 02:52:13 Candidiasi s of mouth 30187277 Active 2022 Oral thrush; Note: Date Diagnosed: 01/22/2023 2:50 PM (B37.0) Note: Date Diagnosed: 01/22/2023 2:50 PM (B37.0) HEATH HALLMAN MD [address] [place] [address], [place], [address] , [place] - [facility] 4 09:34:06 Paralysis of larynx 98269102 Active 2022 Paralysis of vocal cords and larynx, unspecifie d; Note: Date Diagnosed: 01/22/2023 2:48 PM (J38.00) Note: Date Diagnosed: 01/22/2023 2:48 PM (J38.00) HEATH HALLMAN MD [address] [place] [address], [place], [address] , [place] - [facility] 4 09:34:06 Problem Notes None recorded. Procedures Surgical History Date Name Laterality Status Provider Name and Address Organization Details Recorded Time 02/17/2024 FOL_DP completed HEATH HALLMAN MD [address] [place] [address], [place], [phone], [facility] - [facility] 02/14/2024 14:44:22 10/09/2023 FOL_DP completed HEATH HALLMAN MD [address] [place] [place] [address], [phone], [facility] - [facility] 10/09/2023 09:33:16 Imaging Results None recorded. Procedure Notes None [...] aerosol inhaler 2019 active Medicatio n ID: [id number] Du ration Value: 30 Brand Name: Flovent HFA Send Method: E-Prescri bed Subs Allowed: subs OK Specia l Instructi on: INHALE 1 PUFF PO BID Medic ationGene ricName: Flovent HFA Not Available Not Available Not Available pregabalin 50 mg capsule TAKE 1 CAPSULE BY MOUTH EVERY NIGHT active Not Available Not Available No t Available Fish Oil active Medicatio n ID: [id number] Br and Name: fish oil Send Method: E-Prescri bed Subs Allowed: subs OK Medica tionGener icName: fish oil Not Available Not Available Not Available multivitam in active Medicatio n ID: [id number] Br and Name: multivita min Send Method: E-Prescri bed Subs Allowed: subs OK Medica tionGener icName: multivita min Not Available Not Available Not Available ProAir HFA 90 mcg/actuat ion aerosol inhaler 2019 active Medicatio n ID: [id number] Du ration Value: 25 Brand Name: ProAir [...] Updated DateTime 10/09/2023 160.02 cm 46.1 kg/m2 015745.02 g Shania Valenzuela [facility] 10/09/2023 09:24:33 Date Recorded Body height Body mass index (BMI) Body weight Provider Name and Address Organization Details Last Updated DateTime 02/17/2024 160.02 cm 46.1 kg/m2 848820.02 g Shania Valenzuela [facility] 02/17/2024 14:03:46 Social History None recorded. Functional Status None recorded. Mental Status None recorded. Family History Nothing Reported. Medical History No medical history recorded. Gynecological HistoryNo gynecological history recorded. Obstetrics History GPAL:G 0 P 0 0 0 0 Past Encounters Encounter ID Performer Location Encounter Start Date Encounter Closed Date Diagnosis/Indication Diagnosis SNOMED-CT Code Diagnosis ICD10 Code Diagnosis IMO Codes Diagnosis Note [id number] HEATH HALLMAN MD [facility] [address] [address] 10/09/2023 09:13:13 10/09/2023 09:34:23 Candidiasis of mouth 09044417 B37.0 Paralysis of larynx 8992 7005 J38.00 [id number] HEATH HALLMAN MD [facility] [address] [address] 02/17/2024 13:47:14 02/17/2024 14:29:09 Candidiasis of mouth 31452042 B37.0 Paralysis of larynx 8992 7005 J38.00 Health Concerns Section Related Observation LastModified by Organization Detai ls LastModified Time None Recorded Concern Status LastModified by Organization Details LastModified Time None Recorded Advance Directives Directive None Recorded Payers Insurance Date Sequence Insurance Name Policy Number Policy Arevalo Covered Member ID Arevalo Member ID Guarantor Name 02/14/2024 1 [employer] [id number] Diana Gonzalez [id number] Diana Gonzalez Notes Date Note Type Note Provider Name and Address Organization Details Recorded Time 10/09/2023 text/html ROS as noted in the HPI 09/09/2023 [facility] [place] VC injection 0.8ml of prolaryn plusstrobe with Ainsley Anderson 02/05/23 with findings of LVF stiff, glottic gap, small vocal nodules, thrushCT neck Rayus 02/06/23, flaccidity of right VC, no masses, prominent but normal LN bilateral level IIa, b reports voice is much improved since procedure HEATH HALLMAN MD [address] [address], [place], [address], [facility] - [facility] 10/09/2023 09:35:51 02/17/2024 text/html ROS as noted in the HPI Left VC paralysisfeels voice is rising in [...] bilateral level IIa, b HEATH HALLMAN MD [address] [place] [address],[address] [address], [place], [phone], [place] - [facility] 02/17/2024 14:28:31 OBGyn Episode No OBEpisode recorded.
--- OUTSIDE RECORDS SUMMARY | 2025-03-22 16:21 | XMS_ITS | Data Portability ---
Author Organization [place] [facility] Cammy Mckeon [place] [place] Address [address] [place] [address] Care Team Providers Care Hog Cooler Name Role Phone ELIAS BARSHER Primary Care Provider [phone] Assessment Encounter Date Assessment Date Assessment LastModified [...] available 09/03/2022 10:59:29 11/09/2022 11/09/2022 HPI : Patient is here for 3 month(s) follow-up for a RIGHT total hip replacement. she is recovering very well. She is walking without assistive device. She reports near 0 pain. She is extremely happy with her progress. Overall, patient reports good pain relief in the hip and satisfactory uatsdin of function in terms of activities of [...] Continue to work on hip conditioning exercises. Qbrs-bmb-veuilon medications as needed. Ultimate failure may occur [...] LEFT total knee replacement and right hip replacement. Cammy vera reports good pain relief in the knee/hip and satisfactory uatsdin of function in terms of activities of [...] after knee arthroplasty. Continue knee conditioning exercises. Arom-rqt-uzjxybu medications as needed. The patient understands that [...] seen and evaluated by Michaelle Vigil MS, PAEstephania in indirect conjunction with documenting/superv ising provider [...] view 024 06/13/19 24 [email or web address] [facility], [address], [address], [place], [address], 4 11:44:21 XR, hip, unilat eral, 2 or 3 view 024 06/13/19 24 [email or web address] [facility], [address], [place], [address], 4 11:44:22 XR, hip, unilat eral, 2 or 3 view 023 11/10/19 23 [email or web address] [facility], [address], [address], [place], [address], 3 14:35:31 XR, knee, 3 view 023 08/07/19 23 [facility], [address], [address], [place], [address], 3 13:56:37 Medication Orders None record ed. Patient TargetsNo targets recorded. Patient Instructions Encounter Date Encounter Id Patient Instructions Last Modified By Organization Details Last Modified Time 08/06/2022 [id number] physical therapy * - Status post right [...] Name and Address Organization Details Recorded Time Morbid obesity 098971256 Active 2022 Morbid obesity Not Available [facility] 5 00:23:23 Osteoarth ritis of right hip joint 754331874327 107 Active 2022 Tyrell Shafer MD [address], [place], [address] , [place] [facility] 3 09:34:34 History of total replaceme nt of right hip joint 854323962598 100 Active 2023 MICHAELLE VIGIL PA-C [address], [place], [address] , [place] [facility] 4 11:43:46 History of left total knee replaceme nt 156258046085 9105 Active 2023 MICHAELLE VIGIL PA-C [address], [place], [address] , [place] [facility] 4 11:44:03 Problem Notes None recorded. Procedures Surgical History Date Name Laterality Status Provider Name and Address Organization Details Recorded Time Knee Surgery completed Josh Peace [facility] 08/06/2022 13:10:40 Hip Surgery completed Josh Sethi [place] [facility] 08/06/2022 13:10:45 Imaging Results None recorded. [...] Not Available ondansetron HCl 4 mg tablet Take 1-2 tablets (4-8 mg total) by mouth every 8 (eight) hours as needed for nausea for up to 14 days. 06/13 completed Not Available Not Available Not Available bupivacaine HCl 0.5 % (5 mg/mL) injection solution 12/08 completed Not Available Not Available Not Available prednisone 20 mg tablet TAKE 2 TABLETS BY MOUTH DAILY FOR 5 DAYS 06/13 completed Not Available Not Available Not Available ascorbic acid buffered ER 1,000 mg tablet,exte nded release Take 1 tablet (1,000 mg total) by mouth daily. active Not Available Not Available No t Available sertraline 100 mg tablet active Not Available Not Available Not Available naproxen 250 mg tablet Take 1 tablet (250 mg total) by mouth 2 (two) times a day with meals. 05/10 completed Not Available Not Available Not Available [...] Not Available Not Available Not Available meloxicam 7.5 mg tablet Take 1 tablet (7.5 mg total) by mouth daily. 03/14 completed Not Available Not Available Not Available levothyroxi ne 100 mcg tablet Take 100 mcg by mouth every morning on an empty stomach. 04/27 completed Not Available Not Available Not Available methocarbam ol 750 mg tablet TAKE 1 TABLET BY MOUTH EVERY 6 HOURS NEEDED 06/13 completed Not Available Not Available Not Available benzonatate 100 mg capsule TAKE 1 CAPSULE BY MOUTH THREE TIMES DAILY FOR 5 DAYS FOR COUGH active Not Available Not Available No t Available triamcinolo ne acetonide 40 mg/mL suspension for injection 12/08 completed Not Available Not Available Not Available cephalexin 500 mg capsule TAKE 1 CAPSULE BY MOUTH FOUR TIMES DAILY active Not Available Not Available No t Available pantoprazol e 40 mg tablet,pedro yed release TAKE 1 TABLET BY MOUTH EVERY DAY 06/13 completed Not Available Not Available Not Available levothyroxi ne 125 mcg tablet Take 1 tablet (125 mcg total) by mouth every morning on an empty stomach. active Not Available Not Available No t Available omeprazole 20 mg capsule,del ayed release Take 1 capsule (20 mg total) by mouth daily. active Not Available Not Available No t Available cephalexin 500 mg tablet TAKE 1 TABLET BY MOUTH EVERY 6 HOURS active Not Available Not Available No t Available montelukast 10 mg tablet Take 1 tablet (10 mg total) by mouth every night at bedtime. active Not Available Not Available No t Available oxycodone 5 mg tablet TAKE 1 TO 2 TABLETS BY MOUTH EVERY 4 HOURS NEEDED FOR PAIN 06/13 completed Not Available Not Available Not Available Flovent HFA 44 mcg/actuati on aerosol inhaler 06/13 completed Not Available Not Available Not Available lidocaine (PF) 20 mg/mL (2 %) injection solution 12/08 completed Not Available Not Available Not Available [...] Updated DateTime 08/06/2022 154.94 cm 42.5 kg/m2 142557.28 g Josh Sethi [facility] 08/06/2022 13:08:04 Date Recorded Body height Body mass index (BMI) Body weight Provider Name and Address Organization Details Last Updated DateTime 09/03/2022 154.94 cm 42.5 kg/m2 073473.28 g Josh Sethi [facility] 09/03/2022 10:43:47 Date Recorded Body height Body mass index (BMI) Body weight Provider Name and Address Organization Details Last Updated DateTime 11/09/2022 154.94 cm 42.5 kg/m2 865662.28 g Josh Sethi [facility] 11/09/2022 13:26:01 Social History Question Answer Notes LastModified by Organizat ion Details LastModified Time Tobacco Smoking Status Former Smoker Josh Sethi [facility] 08/06/2022 13:08:53 Which Illicit Or Recreational Drugs Have You Used? Marijuana [email or web address] Information not available 08/06/2022 When Did You Quit Smoking? 16+yearssincel astcigarette [email or web address] Information not available 08/06/2022 Sex: Unknown Functional Status Question Answer Note LastModified by Organizat ion Details LastModified Time Do you use any illicit or recreational drugs? Yes [email or web address] Information not available 08/06/2022 Do you or have you ever used any other forms of tobacco or nicotine? No [email or web address] Information not available 08/06/2022 What is your level of alcohol consumption? None [email or web address] Information not available 08/06/2022 Mental Status None recorded. Family History Relationship Description Onset Age of this Age Resolved Age Notes LastModified by Organization Details LastModified Time Father Hypertensive disorder [email or web address] Not available 13:10:19 Father Heart failure [email or web address] Not available 13:10:30 Brother Hypertensive disorder [email or web address] Not available 13:10:19 Medical History Condition Response Reflux/GERD Y Asthma Y Hypothyroidism Y Gynecological HistoryNo gynecological history recorded. Obstetrics History GPAL:G 0 P 0 0 0 0 Past Encounters Encounter ID Performer Location Encounter Start Date Encounter Closed Date Diagnosis/Indication Diagnosis SNOMED-CT Code Diagnosis ICD10 Code Diagnosis IMO Codes Diagnosis Note [id number] [facility] [facility] [facility] [address] [facility] [address] [place] [address] 08/06/2022 12:56:18 08/06/2022 13:50:38 Pain of left knee joint 5135123841 39968 M25.562 Arthritis of right hip 2252004265 478872 M13.851 [id number] [facility] [address] [facility] [address] [place] [address] 09/03/2022 10:40:26 09/03/2022 10:55:46 Osteoarthritis of right hip joint 2666913092 83174 M16.11 [id number] MD ILDA Perez [employer] [address] [facility] [address] [place] [address] 11/09/2022 13:21:09 11/09/2022 13:56:17 History of right hip replacement 1925597309 822921 Z96.641 Aftercare 237577585 Z47. 1 [id number] [address]IND[address] PASCAL [facility] [address] [facility] [address] [place] [address] 06/13/2023 11:15:18 06/13/2023 11:44:21 History of total replacement of right hip joint 1009092558 13583 Z96.641 History of left total knee replacement 2202018654 845999 Z96.652 Health Concerns Section Related Observation LastModified by Organization Detai ls LastModified Time None Recorded Concern Status LastModified by Organization Details LastModified Time None Recorded Advance Directives Directive None Recorded Payers Insurance Date Sequence Insurance Name Policy Number Policy Arevalo Covered Member ID Arevalo Member ID Guarantor Name 06/18/2023 1 BEN [id number] Diana Gonzalez [id number] Diana Gonzalez Notes Date Note Type Note Provider Name and Address Organization Details Recorded Time 08/06/2022 text/html 47-year-old female is presenting for routine surveillance. She is [...] fever and chills. MICHAELLE VIGIL PA-C [address], [address], [place] [facility] 08/06/2022 13:42:21 09/03/2022 text/html 47-year-old female is 7 weeks status post right total [...] problems going forward. MICHAELLE VIGIL PA-C [address] [facility],[address], [place], [address], [place] [facility] 09/03/2022 10:59:54 OBGyn Episode No OBEpisode recorded.
--- OUTSIDE RECORDS SUMMARY | 2025-03-22 16:21 | XMS_ITS | Clinical Summary ---
Author Organization [facility] Address [address] [place] [address] Care Team Providers Care Chargeback Analyst Name Role Phone Mayra Moctezuma MD Primary Care Provider [phone] Allergies No known active allergies Medications Medication Sig Dispensed Refills Start Date End Date Status sertraline (ZOLOFT) 100 MG tablet 0 06/17/2018 Active [place]-3 Fatty Acids (FISH OIL) 875 MG CAPS [...] age to complete this topic Care Teams Chargeback Analyst Relationship Specialty Start Date End Date Mayra Moctezuma MD PCP - General Internal Medicine 07/25/18
== END 2025-03-22 13:17 | disposition home or self-care (01) ==
LOC: HO.HPS 12:45
PROVIDERS: PCP Nurse Practitioner; Visit Provider Hospitalist
DX: J45.50 Severe persistent asthma, uncomplicated (principal); T78.40XA Allergy, unspecified, initial encounter; J38.01 Paralysis of vocal cords and larynx, unilateral; K44.9 Diaphragmatic hernia without obstruction or gangrene; R60.0 Localized edema; J44.9 Chronic obstructive pulmonary disease, unspecified
CPT/HCPCS: 99214